=== PATIENT | male | born 1935 | race African-American/Black ===

== ENCOUNTER 2017-04-24 09:43 | Outpatient (CLI) | payer MEDICARE, BC, OTHER ==
--- NOTE | 2017-04-24 11:11 | RAD ---
2 VIEWS CHEST: Date: 04/24/17 COMPARISON: 01/07/13. HISTORY: Chronic cough. FINDINGS: Two views of the chest show a normal sized cardiomediastinal silhouette. There is stable elevation of the left hemidiaphragm. There is no evidence of consolidation, mass, or pleural effusion. Degenerati ve changes are seen in the spine. IMPRESSION: No evidence of acute cardiopulmonary disease. POS: [facility]
== END 2017-04-24 09:44 | disposition home or self-care (01) ==
LOC: RAD-FRANK 09:43
PROVIDERS: ATTEND Nurse Practitioner Family
DX: Z77.090 Contact with and (suspected) exposure to asbestos (principal); Z12.5 Encounter for screening for malignant neoplasm of prostate; C61 Malignant neoplasm of prostate; B36.0 Pityriasis versicolor; E11.622 Type 2 diabetes mellitus with other skin ulcer; E11.65 Type 2 diabetes mellitus with hyperglycemia; E78.5 Hyperlipidemia, unspecified; H25.13 Age-related nuclear cataract, bilateral; K21.9 Gastro-esophageal reflux disease without esophagitis; M16.11 Unilateral primary osteoarthritis, right hip; M17.11 Unilateral primary osteoarthritis, right knee; N40.0 Benign prostatic hyperplasia without lower urinary tract symptoms; I10 Essential (primary) hypertension; Z68.36 Body mass index [BMI] 36.0-36.9, adult; Z96.642 Presence of left artificial hip joint
CPT/HCPCS: 36415; 71020; 80053; 80061; 83036; 84443; 85007; 85027; G0103

== ENCOUNTER 2017-08-15 13:25 | Outpatient (CLI) | payer MEDICARE, BC, OTHER ==
--- NOTE | 2017-08-15 15:05 | RAD ---
TWO VIEW CHEST: Comparison: 04-24-17 Clinical history: Asbestos exposure, URI. FINDINGS: There is re-demonstration of an elevated left hemidiaphragm with adjacent atelectasis. There is mild patchy opacity of the right lateral lung base. Cardiomediastinal silhouette is stable. IMPRESSION: 1. Re-demonstrating of an elevated left hemidiaphragm with adjacent atelectasis. 2. Mild patchy right lateral basilar opacity could relate to volume loss. POS: [facility]
== END 2017-08-15 13:26 | disposition home or self-care (01) ==
LOC: RAD-FRANK 13:25
PROVIDERS: ATTEND Nurse Practitioner Family
DX: J06.9 Acute upper respiratory infection, unspecified (principal); R06.2 Wheezing; J98.11 Atelectasis; J98.4 Other disorders of lung
CPT/HCPCS: 71046

== ENCOUNTER 2017-08-18 08:50 | Outpatient (CLI) | payer MEDICARE, OTHER, BC ==
[2017-08-18 10:31] LABS: Estimated GFR-MDRD - POC Greater than 90
--- NOTE | 2017-08-18 12:44 | CT ---
CT CHEST WITH IV CONTRAST: CT ABDOMEN AND PELVIS WITH IV AND ORAL CONTRAST: HISTORY: Abnormal chest x-ray. Abdomen pain. Prostate cancer. FINDINGS: Mild bibasilar atelectasis is present within the lungs. There are scattered tiny, pleural-based, sub centimeter nodules. The left hemidiaphragm is elevated. No masses are apparent within the mediastin um. Fluid layers within the dependent portion of the mildly distended esophagus. Cysts at the inferior pole, right kidney, measure up to 7 cm. Smaller cysts are associated with the cortex of each kidney. There are prominent degenerative changes of the lumbar spine. The urinary bl adder is unremarkable. Metallic seeds at the prostate bed are consistent with prior brachytherapy. A left hip prosthesis is partially visualized. IMPRESSION: 1. Left hemidiaphragm elevation. This has been chronic on prior radiographs. No pathologic cause i s evident. 2. Gastroesophageal reflux. POS: [facility]
== END 2017-08-18 08:51 | disposition home or self-care (01) ==
LOC: CT 08:50
PROVIDERS: ATTEND Nurse Practitioner Family
DX: J98.11 Atelectasis (principal); J98.4 Other disorders of lung; R91.8 Other nonspecific abnormal finding of lung field; J98.6 Disorders of diaphragm; K21.9 Gastro-esophageal reflux disease without esophagitis
CPT/HCPCS: 71260; 74177; 82565

== ENCOUNTER 2018-05-10 05:09 | Outpatient (CLI) | payer MEDICARE, OTHER ==
[2018-05-10 09:37] LABS: Bilirubin Negative (Negative); Blood, Urine Negative (Negative); Clarity CLEAR (Clear); Glucose, Urine (Dipstick) Negative (Negative); Leukocyte Negative (Negative); Nitrite Negative (Negative); Protein, Urine (Dipstick) Negative (Neg-Trace); Specific Gravity, Urine 1.022 (1.002-1.036); pH, Urine 5.5 (5.0-9.0)
[2018-05-10 09:41] LABS: #Basophils 0.1 thou/uL (0.0-0.2); #Eosinphils 0.2 thou/uL (0.0-0.7); #Lymphocytes 2.3 thou/uL (1.20-3.40); #Monocytes 0.7 thou/uL (0.11-0.59); #Neutrophils 3.5 thou/uL (1.40-6.50); %Basophils 1.4 % (0.0-1.0); %Eosinophils 2.4 % (0.0-10.0); %Lymphocytes 34.4 % (21.0-51.0); %Monocytes 9.7 % (0.0-10.0); %Neutrophils 52.2 % (42.0-75.0); Bacteria/HPF None Seen HPF (None Seen); Hemoglobin 13.9 g/dL (14.0-18.0); Hyaline Casts/LPF 0-3 HYALINE CAST LPF (0-3 Hyaline); Mean Corpuscular HGB CONC 31.3 g/dL (32.0-36.0); Mean Corpuscular Hemoglobin 28.5 pg (27.0-31.0); Mean Corpuscular Volume 91.2 fL (78.0-98.0); Mean Platelet Volume 7.6 fL (7.4-10.4); PTT 37.5 SEC (22.9-36.1); Platelet Count 186 thou/uL (130-400); Prothrombin Time 13.6 SEC (12.0-14.7); RBC Distribution Width 11.7 % (11.5-14.5); Red Blood Cell (RBC) Count 4.87 mill/uL (4.70-6.10); Squamous Epithelial None Seen HPF (0-3); WBC/HPF None Seen HPF (0-3); White Blood Cell (WBC) Count 6.7 thou/uL (4.8-10.8)
[2018-05-10 09:52] LABS: Anion Gap 13 mmol/L (10-20); BUN (Urea Nitrogen) 19 mg/dL (8.4-25.7); Calc. Creatinine Clearance 0 mL/min (70-130); Calcium 9.4 mg/dL (7.8-10.44); Carbon Dioxide 26 mmol/L (23-31); Chloride 103 mmol/L (98-107); Estimated GFR-MDRD Greater than 90; Glucose 139 mg/dL (83-110); Sodium 138 mmol/L (136-145)
== END 2018-05-10 05:10 | disposition home or self-care (01) ==
LOC: LABBT 05:09
PROVIDERS: ATTEND Orthopaedic Surgery
DX: Z01.818 Encounter for other preprocedural examination (principal); M16.11 Unilateral primary osteoarthritis, right hip
CPT/HCPCS: 80048; 81001; 85025; 85610; 85730; 87081; 93005; 93010

== ENCOUNTER 2018-05-10 08:45 | Inpatient (IN) | payer MEDICARE ==
--- NOTE | 2018-05-17 13:25 | HP ---
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 He has also used a cane. His pain is now interfering with day-to-day activities including walking, getting dressed, and sleeping. PAST MEDICAL HISTORY: The patient has had previous left total hip replacement by me 7 years ago with good results. He has had previous low back surgery by Dr. Baker, which was also successful. He recently had a urethral stricture, treated with dilatation by Dr. Price with improvement, and did have a catheter placed for a brief period of time and was on antibiotics, but this has been discontinued. He also has a history of diabetes and previous prostate cancer. He has been seen and cleared for surgery by his primary care provider, Tere Hackett. CURRENT MEDICATIONS: Include naproxen, latanoprost eye drops, Claudine p.r.n., albuterol p.r.n., Flonase p.r.n., simvastatin, Viagra, nystatin, metformin, Flomax, 81 mg aspirin, multivitamins and omeprazole. ALLERGIES: HE IS ALLERGIC TO CODEINE. FAMILY HISTORY, SOCIAL HISTORY, AND REVIEW OF SYSTEMS: Otherwise unremarkable. The patient lives by himself and is independent. PHYSICAL EXAMINATION: GENERAL: Healthy elderly male. HEENT: Unremarkable. NECK: Supple. CHEST: Clear. HEART: Regular rate and rhythm. ABDOMEN: Soft, nontender. RECTAL AND GENITAL EXAMS: Were deferred. EXTREMITIES: Pertinent findings related to the right hip. There is tenderness in the anterior right hip. Right leg is approximately 1 cm short. There is a right antalgic gait. There is decreased range of motion of the right hip and groin pain with internal rotation. Pulses were 1+. NEUROVASCULAR EXAM: Intact. LABORATORY DATA: X-rays of the right hip reveal severe DJD with no joint space remaining. He also has significant DJD of both knees. IMPRESSION: 1. Degenerative joint disease, right hip. 2. Status post left total hip replacement. 3. Diabetes. 4. History of prostate cancer. 5. History of urethral stricture. PLAN: Right total hip replacement. The nature of the surgery, length of recovery, and potential complications such as infection, loss of motion, incomplete relief, neurovascular injury, thromboembolic phenomenon, leg length discrepancy, possible transfusion, and need for revision have been discussed in detail. Job ID: [id number]
[2018-05-21] MEDS ORDERED: Vancomycin HCl 1.5 GM in Sodium Chloride 0.9% 250 ML 300 ML IVPB SCH ×2 (06:15→19:00)
[2018-05-21] MEDS ORDERED: Fentanyl 100 MCG/2 ML VIAL ONE ×5 (06:31→09:49)
[2018-05-21] MEDS ORDERED: Tranexamic Acid 1,000 MG/10 ML VIAL ONE ×2 (06:47→08:50)
[2018-05-21] MEDS ORDERED: Sodium Chloride 0.9% 100 ML ONE (06:47)
[2018-05-21] MEDS ORDERED: CEFAZOLIN 2 GM/50 ML BAG ONE (06:47)
[2018-05-21] MEDS ORDERED: Morphine 10 MG/ML VIAL ONE (08:18)
[2018-05-21] MEDS ORDERED: Tranexamic Acid 1,000 MG in Sodium Chloride 0.9% 100 ML IVPB SCH ×2 (09:00→10:39)
[2018-05-21] MEDS ORDERED: Promethazine HCl 25 MG/ML VIAL IM PRN ×2 (09:05→09:10)
[2018-05-21] MEDS ORDERED: Ondansetron HCl/PF 4 MG/2 ML Vial IVP PRN (09:05)
[2018-05-21] MEDS ORDERED: Promethazine HCl 25 MG/ML VIAL SLOW IVP PRN ×2 (09:05→10:39)
[2018-05-21] MEDS ORDERED: Ketorolac Tromethamine 30 MG/ML VIAL ONE (09:06)
[2018-05-21] MEDS ORDERED: Naloxone HCl 0.4 mg/ml Vial IV PRN (09:10)
[2018-05-21] MEDS ORDERED: diphenhydrAMINE 50 MG/ML VIAL IM/IV PRN (09:10)
[2018-05-21] MEDS ORDERED: HYDROmorphone 10 mg/100 ml CADD IV PRN (09:10)
[2018-05-21] MEDS ORDERED: diphenhydrAMINE 25 MG CAP PO PRN ×2 (09:10→10:39)
[2018-05-21] MEDS ORDERED: Zolpidem Tartrate 5 MG TAB PO PRN ×2 (09:10→10:39)
[2018-05-21] MEDS ORDERED: fentaNYL Citrate/PF 2,000 MCG in Sodium Chloride 0.9% 60 ML IV PRN (09:14)
--- NOTE | 2018-05-21 10:38 | RAD ---
RIGHT HIP 2 VIEWS: INDICATION: Status post right total hip. IMPRESSION: Since the comparison study dated 09/17/2010, the right hip has been replaced. The right hip prosthesis projects in the expected position. No complications are grossly evident. Brachytherapy beads are p resent within the region of the prostate. POS: [facility]
[2018-05-21] MEDS ORDERED: CEFAZOLIN/Water 2 GM/20 ML SYRINGE SLOW IVP SCH (10:39)
[2018-05-21] MEDS ORDERED: PROVENTIL INHALER 6.7 G (200 INHALATIONS) INH PRN (10:39)
[2018-05-21] MEDS ORDERED: Ondansetron PF 4 MG/2 ML Vial IVP PRN (10:39)
[2018-05-21] MEDS ORDERED: Acetaminophen 325 MG TAB PO PRN (10:39)
[2018-05-21] MEDS ORDERED: traMADol HCl 50 MG TAB PO PRN (10:39)
[2018-05-21] MEDS ORDERED: Loratadine 10 MG TAB PO PRN (10:39)
[2018-05-21] MEDS ORDERED: HYDROcodone/Acetaminophen 10/325 mg Tablet PO PRN ×2 (10:39)
[2018-05-21] MEDS ORDERED: Fentanyl 100 MCG/2 ML VIAL SLOW IVP PRN (10:39)
[2018-05-21 11:09] VITALS: BMI 34.9
--- NOTE | 2018-05-21 11:34 | OP ---
DATE OF PROCEDURE: 05/21/2018 CLINICAL CODER: Dr. Matos. ANESTHESIA: General. PREOPERATIVE DIAGNOSIS: Degenerative arthritis, right hip. POSTOPERATIVE DIAGNOSIS: Degenerative arthritis, right hip. PROCEDURE PERFORMED: Right total hip replacement with uncemented M[place] Trident PSL acetabular shell, 56 mm, and uncemented [place] Accolade femoral stem 4.5 with 132 degrees angle trunnion and 36 mm standard neck length metal femoral head. DESCRIPTION OF PROCEDURE: After satisfactory anesthesia was induced in supine position, the patient was placed in a lateral decubitus position. This position held with hip positioning device. Sequential compression devices were placed on the nonoperative leg throughout the procedure. The patient's right hip was then prepped and draped in routine sterile fashion. The hip was approached through a lateral curvilinear incision centered over the greater trochanter, carried down through the subcutaneous tissues and bleeding points were controlled with Bovie cautery. IT-band and gluteal fascia were split in line with the skin incision. A direct lateral approach to the hip prominence was accomplished by dividing the anterior 3rd of the gluteus medius, minimus, Bovie cautery by reflecting this as a single flap anteriorly and medially along with the vastus lateralis. Anterior capsulectomy was performed. Hip dislocated anteriorly. There was marked degenerative arthritis in the hip with large areas of exposed bone. Femoral neck was osteotomized with the oscillating saw using a trial prosthesis as a guide. Acetabulum was exposed and cleaned of all soft tissue and debris and then reamed in sequence with prior reamers down to bleeding subchondral bone to a total of 56 mm. It was felt that a 56 mm PSL outershell could be placed in a press-fit fashion. The femoral component was position. There was good fit and stability of the acetabular shell and the permanent X3 polyethylene liner was then snapped into position and the proximal femur exposed. It was opened with a box osteotome and rasped in sequence to accept the 4.5 Accolade femoral rasp. Trial reduction with 132 degrees angle trunnion and 36 mm femoral head gave appropriate size, fit, and stability. The trial components were removed. The permanent 4.5 Accolade femoral stem was then hammered in position. This gave good fit and stability of the component. The permanent 36-mm standard neck length metal femoral head was then placed on the trunnion and the hip again reduced and found to be stable. The hip was copiously irrigated with pulsatile lavage. The abductors were repaired with interrupted #2 Vicryl. IT-band and gluteal fascia were closed with interrupted #2 Vicryl and a running #2 Quill. Subcutaneous tissues were closed with a running 0 Quill suture and the skin closed with running subcuticular 3-0 Monoderm and SurgiSeal skin adhesive. A sterile dressing was applied and the patient turned in supine position, and a pillow placed between his legs. Sequential compressive device was placed to the operative leg and was awakened, taken to the recovery room in stable condition. There were no apparent intraoperative complications. The estimated blood loss was 300 mL. Job ID: [id number]
[2018-05-21] MEDS ORDERED: Ketorolac Tromethamine 30 MG/ML VIAL IVP SCH (12:00)
[2018-05-21] MEDS: Acetaminophen 1,000 MG in Premix Bag 1 BAG IVPB SCH ×3 (12:58→23:33)
[2018-05-21] MEDS ORDERED: Dextrose 50% Abboject 50 ML SYRINGE SLOW IVP PRN (13:49)
[2018-05-21] MEDS ORDERED: Dextrose 5% in Water 1,000 ML IV PRN (13:49)
[2018-05-21] MEDS ORDERED: Glycopyrrolate 0.2 MG/ML 5 ML SYRINGE ONE (13:51)
[2018-05-21] MEDS ORDERED: Lidocaine 1% PF 5 ML VIAL ONE (13:51)
[2018-05-21] MEDS ORDERED: PHENYLEPHRINE-NS 100 MCG/ML 10 ML SYRINGE ONE (13:51)
[2018-05-21] MEDS ORDERED: PROPOFOL 200 MG/20 ML VIAL ONE (13:51)
[2018-05-21] MEDS ORDERED: Ondansetron PF 4 MG/2 ML Vial ONE (13:51)
[2018-05-21] MEDS ORDERED: ePHEDrine/0.9% NaCl/PF SYRINGE 50 mg/10 ml ONE (13:51)
[2018-05-21] MEDS: Ketorolac Tromethamine 30 MG/ML VIAL IVP SCH ×2 (14:31→21:20)
[2018-05-21] MEDS: CEFAZOLIN 2 GM/50 ML-DEXTROSE 2 GM in Premix Bag 1 BAG IVPB SCH ×2 (14:31→23:31)
[2018-05-21] MEDS: Ondansetron PF 4 MG/2 ML Vial IVP PRN (16:54)
[2018-05-21] MEDS ORDERED: metFORMIN 500 MG TAB PO SCH (17:00)
[2018-05-21] MEDS: Sodium Chloride 0.9% 1,000 ML IV SCH ×2 (18:49→20:08)
[2018-05-21] MEDS: Latanoprost 0.005% Ophth Soln 2.5 ml Bottle EA EYE SCH (20:07)
[2018-05-21] MEDS: Aspirin 81 mg Enteric Coated Tablet PO SCH (20:08)
[2018-05-21] MEDS: Tamsulosin HCl 0.4 MG CAP PO SCH (20:08)
[2018-05-21] MEDS: Atorvastatin Calcium 10 MG TAB PO SCH (20:08)
--- NOTE | 2018-05-21 20:26 | CON ---
DATE OF CONSULTATION: 05/21/2018 CONSULTING PHYSICIAN: Dr. Madison, Orthopedic Surgery. REASON FOR CONSULTATION: Medical management. HISTORY: The patient is an 83-year-old male who just had a right hip replaced by Dr. Madison this morning. He does not have much complaints to offer. Some discomfort in the right hip, but otherwise he is doing quite well. Apparently, he had his left hip replaced seven years ago. HISTORY OF PRESENT ILLNESS: The patient is an [id number] with past medical history: 1. Diabetes mellitus. 2. Prostate cancer. 3. Urethral stricture. 4. Hyperlipidemia. 5. Erectile dysfunction. PAST SURGICAL HISTORY: 1. Left hip replacement. 2. Urethral stricture, status post dilatation. MEDICATIONS: 1. Tylenol 1000 mg q.6 hours p.r.n. 2. Albuterol sulfate two puffs q.6 hours p.r.n. 3. Aspirin 81 mg twice a day. 4. Atorvastatin 10 mg at bedtime. 5. Calcium carbonate 500 mg once a day. 6. Cefazolin 2 g IV piggyback. 7. Fentanyl p.r.n. 2000 mcg. 8. Ferrous gluconate 325 mg twice a day. 9. Fluticasone propionate p.r.n. for nasal congestion. 10. Multivitamin one a day. 11. Ketorolac 15 mg IV push q.8 hours scheduled. 12. Latanoprost which is Xalatan eyedrops one drop to each eye. 13. Claritin 10 mg daily p.r.n. 14. Metformin 1000 mg twice a day. 15. Zofran 4 mg IV push q.6 hours p.r.n. 16. Pantoprazole 40 mg once a day. 17. Senokot-S 2 tablets twice a day. 18. Flomax 0.4 mg q.p.m. 19. Vancomycin 1.5 g. 20. Ambien 5 mg at bedtime p.r.n. ALLERGIES: CODEINE. FAMILY HISTORY: Father at the age of 92 of old age. Mother had liver cancer. She when she was 75. SOCIAL HISTORY: He does not have any current history of cigarette smoking, illicit drug use, or alcohol intake. REVIEW OF SYSTEMS: All 14 systems were reviewed and only positive findings which are mentioned in the HPI. PHYSICAL EXAMINATION: VITAL SIGNS: Blood pressure is 141/72, pulse is 72, respirations 18, temperature is 97.3, and O2 saturation is 96% on room air. HEENT: Head is atraumatic and normocephalic. Eyes are PERRLA. Sclerae are nonicteric. Oral mucosa is moist. NECK: Supple. No lymphadenopathy. Thyroid is not palpable. LUNGS: Clear. HEART: S1 and S2 normal. No S3. No S4. No murmur. ABDOMEN: Soft, nontender. Bowel sounds are present. No organomegaly. EXTREMITIES: Right hip area has a small dressing. There is clubbing, cyanosis, or edema. NEUROLOGICAL EXAMINATION: He is alert and oriented x4. There are no sensory or motor deficits present. Cranial nerves are intact. LABORATORY DATA: Glucose is 123. IMPRESSION: 1. Right hip replacement. 2. Diabetes mellitus. 3. Hyperlipidemia. 4. History of prostate cancer. 5. History of urethral stricture, status post dilatation. 6. History of left total hip replacement. RECOMMENDATION: Use 2000-calories ADA diet. Accu-Cheks a.c. and at bedtime, cover with mild sliding scale. Restart metformin at the time when he goes home. Use pain management with fentanyl. Job ID: [id number]
[2018-05-22] MEDS: Ketorolac Tromethamine 30 MG/ML VIAL IVP SCH ×3 (06:15→21:39)
[2018-05-22] MEDS: Acetaminophen 1,000 MG in Premix Bag 1 BAG IVPB SCH ×2 (06:15→13:12)
[2018-05-22 06:23] LABS: Hemoglobin 10.9 g/dL (14.0-18.0); Mean Corpuscular HGB CONC 32.2 g/dL (32.0-36.0); Mean Corpuscular Hemoglobin 29.3 pg (27.0-31.0); Mean Corpuscular Volume 90.9 fL (78.0-98.0); Mean Platelet Volume 7.4 fL (7.4-10.4); Platelet Count 208 thou/uL (130-400); RBC Distribution Width 11.6 % (11.5-14.5); Red Blood Cell (RBC) Count 3.73 mill/uL (4.70-6.10); White Blood Cell (WBC) Count 10.1 thou/uL (4.8-10.8)
[2018-05-22] MEDS: Sodium Chloride 0.9% 1,000 ML IV SCH ×2 (06:54→18:08)
[2018-05-22] MEDS: Ondansetron PF 4 MG/2 ML Vial IVP PRN (08:39)
[2018-05-22] MEDS: Fluticasone Propionate Nasal Spray 16 gm Bottle NASAL SCH (10:11)
[2018-05-22] MEDS: Senokot S 8.6-50 MG TAB PO SCH ×4 (10:13→20:34)
[2018-05-22] MEDS: Aspirin 81 mg Enteric Coated Tablet PO SCH ×2 (10:13→20:34)
[2018-05-22] MEDS: Multivitamin W/ Minerals 1 TAB PO SCH (10:13)
[2018-05-22] MEDS: Calcium Carbonate 500 MG TAB PO SCH (10:13)
[2018-05-22] MEDS: Ferrous Gluconate 324 MG TAB PO SCH ×2 (10:14→20:31)
[2018-05-22] MEDS: Acetaminophen 500 MG TAB PO SCH (17:54)
[2018-05-22] MEDS: HumaLOG 300 UNITS/3 ML VIAL SC PRN ×2 (18:23→20:36)
[2018-05-22] MEDS: Tamsulosin HCl 0.4 MG CAP PO SCH (20:31)
[2018-05-22] MEDS: Atorvastatin Calcium 10 MG TAB PO SCH (20:32)
[2018-05-22] MEDS: Latanoprost 0.005% Ophth Soln 2.5 ml Bottle EA EYE SCH (20:32)
[2018-05-23] MEDS: Acetaminophen 500 MG TAB PO SCH ×5 (00:31→23:11)
[2018-05-23] MEDS: Sodium Chloride 0.9% 1,000 ML IV SCH ×3 (01:45→20:42)
[2018-05-23] MEDS: Ketorolac Tromethamine 30 MG/ML VIAL IVP SCH ×2 (06:05→14:40)
[2018-05-23 07:36] LABS: Hemoglobin 10.2 g/dL (14.0-18.0); Mean Corpuscular HGB CONC 31.6 g/dL (32.0-36.0); Mean Corpuscular Hemoglobin 28.8 pg (27.0-31.0); Mean Corpuscular Volume 91.1 fL (78.0-98.0); Mean Platelet Volume 7.3 fL (7.4-10.4); Platelet Count 186 thou/uL (130-400); RBC Distribution Width 11.5 % (11.5-14.5); Red Blood Cell (RBC) Count 3.56 mill/uL (4.70-6.10); White Blood Cell (WBC) Count 12.2 thou/uL (4.8-10.8)
[2018-05-23] MEDS: Fluticasone Propionate Nasal Spray 16 gm Bottle NASAL SCH (09:14)
[2018-05-23] MEDS: Multivitamin W/ Minerals 1 TAB PO SCH (09:16)
[2018-05-23] MEDS: Calcium Carbonate 500 MG TAB PO SCH (09:16)
[2018-05-23] MEDS: Aspirin 81 mg Enteric Coated Tablet PO SCH ×2 (09:16→20:38)
[2018-05-23] MEDS: Ferrous Gluconate 324 MG TAB PO SCH ×2 (09:16→20:38)
[2018-05-23] MEDS: Senokot S 8.6-50 MG TAB PO SCH ×2 (09:16→20:38)
[2018-05-23] MEDS ORDERED: HYDROcodone/Acetaminophen 7.5/325 mg Tablet PO PRN ×2 (12:33)
[2018-05-23] MEDS ORDERED: traMADol HCl 50 MG TAB PO PRN ×2 (12:34→12:35)
[2018-05-23] MEDS ORDERED: Fentanyl 100 MCG/2 ML VIAL SLOW IVP PRN (12:35)
[2018-05-23] MEDS: HumaLOG 300 UNITS/3 ML VIAL SC PRN (17:51)
[2018-05-23] MEDS: Tamsulosin HCl 0.4 MG CAP PO SCH (20:38)
[2018-05-23] MEDS: Atorvastatin Calcium 10 MG TAB PO SCH (20:38)
[2018-05-23] MEDS: Latanoprost 0.005% Ophth Soln 2.5 ml Bottle EA EYE SCH (20:39)
[2018-05-24] MEDS: Acetaminophen 500 MG TAB PO SCH ×2 (05:38→13:12)
[2018-05-24] MEDS: Aspirin 81 mg Enteric Coated Tablet PO SCH (08:20)
[2018-05-24] MEDS: Ferrous Gluconate 324 MG TAB PO SCH (08:20)
[2018-05-24] MEDS: Multivitamin W/ Minerals 1 TAB PO SCH (08:20)
[2018-05-24] MEDS: Calcium Carbonate 500 MG TAB PO SCH (08:20)
[2018-05-24] MEDS: Senokot S 8.6-50 MG TAB PO SCH (08:20)
[2018-05-24] MEDS: Fluticasone Propionate Nasal Spray 16 gm Bottle NASAL SCH (08:21)
[2018-05-24] MEDS: Sodium Chloride 0.9% 1,000 ML IV SCH (10:19)
[2018-05-24 12:20] VITALS: BP 126/73; TEMP 97.7
== END 2018-05-24 13:09 | disposition home or self-care (01) | DRG 470 ==
LOC: SJJU 05-21 05:40
PROVIDERS: ADMIT Orthopaedic Surgery; ATTEND Orthopaedic Surgery
PROC: 0SR902A Replacement of Right Hip Joint with Metal on Polyethylene Synthetic Substitute, Uncemented, Open Approach (ICD-10-PCS; principal; 2018-05-21)
DX: M16.11 Unilateral primary osteoarthritis, right hip (principal); Z96.642 Presence of left artificial hip joint; E11.9 Type 2 diabetes mellitus without complications; E78.5 Hyperlipidemia, unspecified; Z79.899 Other long term (current) drug therapy; Z79.82 Long term (current) use of aspirin; Z79.84 Long term (current) use of oral hypoglycemic drugs; Z88.5 Allergy status to narcotic agent; Z85.46 Personal history of malignant neoplasm of prostate
CPT/HCPCS: 36415; 36416; 85027; 86850; 86900; 86901; C1776; J0131; J1200; J1885; J2001; J2270; J2405; J2704; J3010; J3370; J7050

== ENCOUNTER 2018-05-18 10:59 | Outpatient (CLI) | payer MEDICARE | END 2018-05-18 11:00 | disposition home or self-care (01) | LOC: LABBT 10:59 | PROVIDERS: ATTEND Orthopaedic Surgery | DX: Z01.812 Encounter for preprocedural laboratory examination (principal); M16.11 Unilateral primary osteoarthritis, right hip | CPT/HCPCS: 86850; 86900; 86901 ==

== ENCOUNTER 2018-07-23 08:46 | Outpatient (CLI) | payer MEDICARE ==
--- NOTE | 2018-07-23 12:23 | CT ---
CT THORAX WITH IV CONTRAST: INDICATIONS: History of abnormal chest radiograph and prostate cancer. COMPARISON: Prior CT chest, abdomen, and pelvis dated 08/18/2017. FINDINGS: There is stable elevation of the left hemidiaphragm with subsegmental volume loss and/or scarring wit hin the left lung base. No suspicious pulmonary nodule is demonstrated. No pleural effusion or conf luent air space opacity is evident. No enlarged lymph node is present. There is scattered vascular calcification involving the thoracic aorta and coronary arteries. There is an exophytic, hyperdense lesion involving the superior pole of the left kidney, measuring 1.7 cm, that cannot be further david cterized. This is not definitely seen on the comparison renal CT evaluation, dated 01/08/2004. No a cute osseous abnormality is evident. IMPRESSION: 1. No acute cardiopulmonary abnormality. 2. Stable elevation of the left hemidiaphragm with left basilar atelectasis and/or scarring. 3. Hyperdense lesion involving the superior pole left kidney requires further evaluation. Renal ult rasound is recommended for further interrogation. CODE T POS: [facility]
[2018-07-23] MEDS ORDERED: Iopamidol 370 76% 100 ML VIAL ONE (16:28)
== END 2018-07-23 08:47 | disposition home or self-care (01) ==
LOC: CT 08:46
PROVIDERS: ATTEND Nurse Practitioner Family
DX: J98.11 Atelectasis (principal); R91.8 Other nonspecific abnormal finding of lung field; R93.89 Abnormal findings on diagnostic imaging of other specified body structures; N28.9 Disorder of kidney and ureter, unspecified; J98.6 Disorders of diaphragm
CPT/HCPCS: 71260; Q9967

== ENCOUNTER 2018-08-01 15:11 | Outpatient (CLI) | payer MEDICARE ==
--- NOTE | 2018-08-01 16:52 | ULT ---
RENAL ULTRASOUND: 08/01/18 HISTORY: Followup recent CT. COMPARISON: 01/06/04. CORRELATION: CT chest 07/23/18. FINDINGS: Right kidney: Exophytic anechoic focus compatible with a mid pole cyst measuring 6.0 x 4.8 x 7.3 cm. No hydronephrosis. Overall the right kidney measures 12.5 x 6.2 x 6.7 cm. Left kidney: In the mid pole left kidney, there is a 1.7 x 1.4 x 1.3 cm anechoic focus, compatible wi th a slightly exophytic cyst. No hydronephrosis. Left kidney 12.4 x 6.8 x 7.5 cm. The aforementioned cyst is felt to correspond to the CT finding. Unremarkable urinary bladder. IMPRESSION: Bilateral renal cortical cysts. Left renal cyst is felt to correspond to the recent CT finding. POS: [facility]
== END 2018-08-01 15:12 | disposition home or self-care (01) ==
LOC: BICULT 15:11
PROVIDERS: ATTEND Nurse Practitioner Family
DX: N28.9 Disorder of kidney and ureter, unspecified (principal); N28.1 Cyst of kidney, acquired; R93.89 Abnormal findings on diagnostic imaging of other specified body structures
CPT/HCPCS: 76770

== ENCOUNTER 2018-12-13 12:24 | Outpatient (CLI) | payer MEDICARE, BC ==
--- NOTE | 2018-12-13 14:35 | ULT ---
ULTRASOUND NECK SOFT TISSUE LEFT: Date: 12/13/18 HISTORY: Pain. COMPARISON: None. FINDINGS: At the area of palpation is a normal submandibular gland. The right side was done for comparison, whi ch also appears to have normal submandibular gland. There is normal appearance of the left parotid gl and. IMPRESSION: Normal appearance of the salivary glands. CT may be beneficial to evaluate for deeper soft tissue fin dings. POS: [facility]
== END 2018-12-13 12:25 | disposition home or self-care (01) ==
LOC: BICULT 12:24
PROVIDERS: ATTEND Nurse Practitioner Family
DX: R59.0 Localized enlarged lymph nodes (principal)
CPT/HCPCS: 76536

== ENCOUNTER 2018-12-31 16:24 | Emergency (ER) | payer MEDICARE, BC ==
[2018-12-31 17:19] LABS: Bilirubin Negative (Negative); Blood, Urine Negative (Negative); Clarity Clear (Clear); Glucose, Urine (Dipstick) Normal (Negative); Leukocyte Negative Leu/uL (Negative); Nitrite Negative (Negative); Protein, Urine (Dipstick) Negative (Neg-Trace); Urobilinogen Normal mg/dL (Less than 2)
--- NOTE | 2018-12-31 18:03 | CT ---
Head CT without contrast 12/31/2018: HISTORY: Dizziness TECHNIQUE: Axial CT imaging at 5 mm intervals from vertex through skull base without contrast FINDINGS: Imaged paranasal sinuses/mastoid air cells well-aerated. No displaced calvarial fracture. No intracranial hemorrhage, midline shift, or mass effect. Mild cerebral volume loss. IMPRESSION: No acute findings.
[2018-12-31 18:04] LABS: #Basophils 0.1 thou/uL (0.0-0.2); #Eosinphils 0.1 thou/uL (0.0-0.7); #Lymphocytes 2.1 thou/uL (1.20-3.40); #Monocytes 0.6 thou/uL (0.11-0.59); #Neutrophils 2.7 thou/uL (1.40-6.50); %Basophils 1.2 % (0.0-1.0); %Monocytes 10.9 % (0.0-10.0); %Neutrophils 47.9 % (42.0-75.0); Hemoglobin 13.4 g/dL (14.0-18.0); Mean Corpuscular Hemoglobin 30.1 pg (27.0-31.0); Mean Corpuscular Volume 91.4 fL (78.0-98.0); Mean Platelet Volume 7.4 fL (7.4-10.4); Platelet Count 174 thou/uL (130-400); RBC Distribution Width 11.4 % (11.5-14.5); Red Blood Cell (RBC) Count 4.45 mill/uL (4.70-6.10); White Blood Cell (WBC) Count 5.6 thou/uL (4.8-10.8)
[2018-12-31 18:21] LABS: ALT (SGPT) 11 U/L (8-55); AST (SGOT) 13 U/L (5-34); Albumin 3.9 g/dL (3.4-4.8); Alkaline Phosphatase 73 U/L (40-150); Anion Gap 12 mmol/L (10-20); BUN (Urea Nitrogen) 13 mg/dL (8.4-25.7); Calc. Creatinine Clearance 0 mL/min (70-130); Calcium 9.5 mg/dL (7.8-10.44); Carbon Dioxide 25 mmol/L (23-31); Chloride 103 mmol/L (98-107); Estimated GFR-MDRD Greater than 90; Globulin 2.7 g/dL (2.4-3.5); Glucose 109 mg/dL (83-110); Potassium 4.1 mmol/L (3.5-5.1); Protein, Total 6.6 g/dL (5.8-8.1); Sodium 136 mmol/L (136-145)
[2018-12-31] MEDS ORDERED: Meclizine HCl 25 MG TAB ONE (18:48)
== END 2018-12-31 20:34 | disposition home or self-care (01) ==
LOC: ERS 16:24
DX: R42 Dizziness and giddiness (principal); E11.9 Type 2 diabetes mellitus without complications
CPT/HCPCS: 36415; 70450; 80053; 81003; 84484; 85025; 93005; J8597

== ENCOUNTER 2019-11-28 08:02 | Emergency (ER) | payer MEDICARE, BC, OTHER ==
[2019-11-28 08:36] LABS: #Basophils 0.1 thou/uL (0.0-0.2); #Eosinphils 0.1 thou/uL (0.0-0.7); #Lymphocytes 1.3 thou/uL (1.20-3.40); #Monocytes 0.6 thou/uL (0.11-0.59); #Neutrophils 4.6 thou/uL (1.40-6.50); %Eosinophils 2.2 % (0.0-10.0); %Lymphocytes 19.1 % (21.0-51.0); %Monocytes 8.4 % (0.0-10.0); %Neutrophils 69.3 % (42.0-75.0); Hemoglobin 13.1 g/dL (14.0-18.0); Mean Corpuscular HGB CONC 31.6 g/dL (32.0-36.0); Mean Corpuscular Hemoglobin 28.7 pg (27.0-31.0); Mean Corpuscular Volume 90.8 fL (78.0-98.0); Mean Platelet Volume 7.7 fL (7.4-10.4); Platelet Count 222 thou/uL (130-400); RBC Distribution Width 12.8 % (11.5-14.5); Red Blood Cell (RBC) Count 4.56 mill/uL (4.70-6.10); White Blood Cell (WBC) Count 6.6 thou/uL (4.8-10.8)
[2019-11-28 08:52] LABS: ALT (SGPT) 9 U/L (8-55); AST (SGOT) 13 U/L (5-34); Albumin 3.6 g/dL (3.4-4.8); Alkaline Phosphatase 82 U/L (40-110); Anion Gap 13 mmol/L (10-20); BUN (Urea Nitrogen) 9 mg/dL (8.4-25.7); Bilirubin, Total 0.9 mg/dL (0.2-1.2); Calc. Creatinine Clearance 0 mL/min (70-130); Calcium 9.2 mg/dL (7.8-10.44); Carbon Dioxide 26 mmol/L (23-31); Chloride 101 mmol/L (98-107); Estimated GFR-MDRD Greater than 90; Globulin 3.9 g/dL (2.4-3.5); Glucose 147 mg/dL (83-110); Potassium 4.1 mmol/L (3.5-5.1); Protein, Total 7.5 g/dL (5.8-8.1); Sodium 136 mmol/L (136-145)
--- NOTE | 2019-11-28 08:53 | RAD ---
XR Chest 1 View Portable History: Hypertension Comparison: Radiograph 2004. Perfusion is made to a CT from 2019 Findings: Chronic elevation left hemidiaphragm with compressive atelectasis of the left lower lobe an d lingula. Remainder the lungs are clear. Heart size appears normal. Mild tortuosity of the aorta. No acute osseous abnormality. Impression: Chronic findings. No acute intrathoracic abnormality.
[2019-11-28] MEDS ORDERED: Lorazepam 1 MG TAB ONE (08:56)
[2019-11-28 09:20] LABS: Bilirubin Negative (Negative); Blood, Urine Negative (Negative); Clarity Clear (Clear); Glucose, Urine (Dipstick) Normal (Negative); Ketone, Urine Negative (Negative); Leukocyte 75 Leu/uL (Negative); Nitrite Negative (Negative); Protein, Urine (Dipstick) Negative (Neg-Trace); RBC/HPF 0-3 HPF (0-3); Specific Gravity, Urine 1.008 (1.002-1.036); Squamous Epithelial None Seen HPF (0-3); Urobilinogen Normal mg/dL (Less than 2); pH, Urine 7.5 (5.0-9.0)
[2019-11-28 09:35] LABS: Bacteria/HPF 1+ HPF (None Seen)
== END 2019-11-28 11:40 | disposition home or self-care (01) ==
LOC: ERS 08:02
DX: F41.9 Anxiety disorder, unspecified (principal); I10 Essential (primary) hypertension; E11.9 Type 2 diabetes mellitus without complications; Z79.899 Other long term (current) drug therapy; Z79.84 Long term (current) use of oral hypoglycemic drugs
CPT/HCPCS: 36415; 71045; 80053; 81003; 81015; 83880; 84443; 84484; 85025; 87077; 87086; 87186; 93005

== ENCOUNTER 2019-11-30 15:19 | Observation (INO) | payer MEDICARE, BC, OTHER ==
--- NOTE | 2019-11-30 15:59 | RAD ---
EXAM: Single view of the chest HISTORY: Chest pain and hypertension COMPARISON: 11/28/2019 FINDINGS: Single view of the chest shows an enlarged but stable cardiomediastinal silhouette. There is stable elevation of the left hemidiaphragm. There is no evidence of consolidation, mass, or pleural effusion. Degenerative changes are seen in the spine. IMPRESSION: No evidence of acute cardiopulmonary disease
[2019-11-30 16:09] LABS: Bilirubin Negative (Negative); Blood, Urine Negative (Negative); Clarity Clear (Clear); Glucose, Urine (Dipstick) Normal (Negative); Ketone, Urine Negative (Negative); Leukocyte 250 Leu/uL (Negative); Nitrite Negative (Negative); Protein, Urine (Dipstick) Negative (Neg-Trace); RBC/HPF 0-3 HPF (0-3); Specific Gravity, Urine 1.006 (1.002-1.036); Squamous Epithelial None Seen HPF (0-3); Urobilinogen Normal mg/dL (Less than 2)
[2019-11-30 16:12] LABS: Bacteria/HPF 1+ HPF (None Seen)
[2019-11-30 16:13] LABS: #Basophils 0.1 thou/uL (0.0-0.2); #Eosinphils 0.2 thou/uL (0.0-0.7); #Lymphocytes 2.2 thou/uL (1.20-3.40); #Monocytes 0.6 thou/uL (0.11-0.59); #Neutrophils 3.2 thou/uL (1.40-6.50); %Eosinophils 3.2 % (0.0-10.0); %Monocytes 9.8 % (0.0-10.0); Hemoglobin 12.7 g/dL (14.0-18.0); Mean Corpuscular HGB CONC 31.5 g/dL (32.0-36.0); Mean Corpuscular Hemoglobin 28.5 pg (27.0-31.0); Mean Corpuscular Volume 90.4 fL (78.0-98.0); Mean Platelet Volume 7.5 fL (7.4-10.4); Platelet Count 224 thou/uL (130-400); RBC Distribution Width 12.9 % (11.5-14.5); Red Blood Cell (RBC) Count 4.47 mill/uL (4.70-6.10); White Blood Cell (WBC) Count 6.3 thou/uL (4.8-10.8)
[2019-11-30 16:33] LABS: ALT (SGPT) 11 U/L (8-55); AST (SGOT) 14 U/L (5-34); Albumin 3.5 g/dL (3.4-4.8); Alkaline Phosphatase 75 U/L (40-110); Anion Gap 10 mmol/L (10-20); BUN (Urea Nitrogen) 10 mg/dL (8.4-25.7); Bilirubin, Total 0.8 mg/dL (0.2-1.2); Calc. Creatinine Clearance 0 mL/min (70-130); Carbon Dioxide 28 mmol/L (23-31); Chloride 103 mmol/L (98-107); Estimated GFR-MDRD Greater than 90; Globulin 3.6 g/dL (2.4-3.5); Glucose 116 mg/dL (83-110); Magnesium 1.6 mg/dL (1.6-2.6); Potassium 3.9 mmol/L (3.5-5.1); Protein, Total 7.1 g/dL (5.8-8.1); Sodium 137 mmol/L (136-145)
[2019-11-30 16:55] LABS: CKMB 2.3 ng/mL (0-6.6)
[2019-11-30] MEDS ORDERED: Senokot S 8.6-50 MG TAB PO PRN (19:40)
[2019-11-30] MEDS ORDERED: Acetaminophen 325 MG TAB PO PRN (19:40)
[2019-11-30] MEDS ORDERED: Dextrose 5% in Water 1,000 ML IV PRN (20:28)
[2019-11-30] MEDS ORDERED: Dextrose 50% Abboject 50 ML SYRINGE SLOW IVP PRN (20:28)
[2019-11-30 20:46] VITALS: BMI 35.0
[2019-11-30] MEDS: Famotidine 20 MG TAB PO SCH (21:32)
[2019-11-30] MEDS: Apixaban 2.5 MG TAB PO SCH (21:33)
[2019-11-30] MEDS: Temazepam 15 MG CAP PO PRN (21:34)
[2019-11-30 21:55] LABS: Troponin I 0.019 ng/mL (< 0.028)
--- NOTE | 2019-11-30 22:45 | HP ---
CHIEF COMPLAINT: Palpitations. PRIMARY CARE PHYSICIAN: Dr. Hackett. HISTORY OF PRESENT ILLNESS: Mr. Quinn is a very pleasant 84-year-old man complaining of several days of palpitations, which has been intermittent and not associated with chest pain. He denies any shortness of breath or dizziness. Denies any fever, chills, or cough. He was recently seen in the emergency room, found to have a normal sinus rhythm on his EKG, and was discharged. As had his PCP office, he was found to have an irregular heartbeat, presumed to have atrial fibrillation, and was sent to the emergency room today for evaluation. He has past medical history pertinent for diabetes type 2, prostate cancer, and hypertension. Evaluation in the emergency room shows an EKG with atrial fibrillation, rate controlled. Heart rate was 67. He also had a bump in his troponin, which prompted an admission for further evaluation. REVIEW OF SYSTEMS: History of recent days of palpitations. Denies any fever, chills, or upper respiratory. Denies any musculoskeletal pain. Denies any abdominal pain, nausea, vomiting, or diarrhea. All systems are reviewed and are negative, unless mentioned in the HPI. PAST MEDICAL HISTORY: See HPI. PAST SURGICAL HISTORY: Sinus surgery, dental gum surgery, left hip, right hip, and spinal surgery. PSYCHIATRIC HISTORY: Has a history of anxiety. SOCIAL HISTORY: Denies alcohol, drug, or smoking. ALLERGIES: TO CODEINE. CURRENT MEDICATIONS: Which still need to be verified, 1. Amlodipine 2.5 mg p.o. once a day. 2. Sertraline 50 mg p.o. once a day. 3. Metoprolol 25 mg p.o. b.i.d. 4. Atorvastatin 40 mg p.o. once a day. 5. Metformin 500 mg p.o. b.i.d. 6. Flomax 0.4 mg p.o. once a day. 7. Lorazepam 0.5 mg p.o. q.12 hours as needed. PHYSICAL EXAMINATION: VITAL SIGNS: Blood pressure 134/60, pulse is 71, respiratory rate is 19, temp is 97.8, and PO2 sats are 96% on room air. CONSTITUTIONAL: The patient appears nontoxic. He is alert and oriented to person, place, and time. HEENT: Head is atraumatic and normocephalic. Eyes, pupils are equally round and reactive to light. Extraocular muscles are intact. ENT; mouth exam is normal. Mucous membranes are moist. NECK: Normal range of motion. Trachea is midline. RESPIRATORY/CHEST: Breath sounds are clear. Chest expansion is equal. CARDIOVASCULAR: Irregularly irregular. Heart sounds are normal. ABDOMEN: Nontender. Bowel sounds are heard. BACK: Normal range of motion. No tenderness. EXTREMITIES: Upper extremity, motor strength is normal. Sensation is intact. Radial pulses are normal. Lower extremity, motor strength is normal. Pedal pulses are normal. NEURO: The patient is oriented to person, place, and time. Speech is normal. SKIN: Warm and dry. Normal in color that is visualized. PSYCH: Normal insight. Speech is normal. PLAN/ASSESSMENT: 1. New onset atrial fibrillation. We will start Eliquis mg p.o. b.i.d. Order an echocardiogram. Order a TSH and fasting lipids. 2. History of hypertension. We will restart his home medications. 3. History of diabetes type 2. We will add a sliding scale for coverage a.c., bedtime Accu-Cheks. 4. History of hyperlipidemia. We will restart his home medications once verified. 5. Deep vein thrombosis and gastrointestinal prophylaxis ordered. Case discussed with Dr. Workman, who agrees with plan. Job ID: [id number]
[2019-12-01 00:17] LABS: Troponin I 0.022 ng/mL (< 0.028)
[2019-12-01 04:55] LABS: #Basophils 0.1 thou/uL (0.0-0.2); #Eosinphils 0.3 thou/uL (0.0-0.7); #Monocytes 0.8 thou/uL (0.11-0.59); #Neutrophils 3.2 thou/uL (1.40-6.50); %Basophils 0.8 % (0.0-1.0); %Eosinophils 4.4 % (0.0-10.0); %Monocytes 12.3 % (0.0-10.0); %Neutrophils 50.5 % (42.0-75.0); Hemoglobin 12.2 g/dL (14.0-18.0); Mean Corpuscular HGB CONC 30.1 g/dL (32.0-36.0); Mean Corpuscular Hemoglobin 27.7 pg (27.0-31.0); Mean Corpuscular Volume 91.8 fL (78.0-98.0); Mean Platelet Volume 7.5 fL (7.4-10.4); Platelet Count 224 thou/uL (130-400); RBC Distribution Width 12.9 % (11.5-14.5); Red Blood Cell (RBC) Count 4.41 mill/uL (4.70-6.10); White Blood Cell (WBC) Count 6.4 thou/uL (4.8-10.8)
[2019-12-01 05:21] LABS: ALT (SGPT) 10 U/L (8-55); AST (SGOT) 14 U/L (5-34); Albumin 3.3 g/dL (3.4-4.8); Alkaline Phosphatase 69 U/L (40-110); Anion Gap 12 mmol/L (10-20); BUN (Urea Nitrogen) 11 mg/dL (8.4-25.7); Bilirubin, Total 0.7 mg/dL (0.2-1.2); Calc. Creatinine Clearance 127 mL/min (70-130); Calcium 8.9 mg/dL (7.8-10.44); Carbon Dioxide 27 mmol/L (23-31); Chloride 103 mmol/L (98-107); Cholesterol 119 mg/dl (< 200 Desired); Estimated GFR-MDRD Greater than 90; Globulin 3.3 g/dL (2.4-3.5); Glucose 112 mg/dL (83-110); HDL Cholesterol 40 mg/dL (>60 Neg Risk); LDL Cholesterol, Calculated 70 mg/dL; Potassium 3.9 mmol/L (3.5-5.1); Protein, Total 6.6 g/dL (5.8-8.1); Sodium 138 mmol/L (136-145); Triglycerides 46 mg/dL (Less than 150)
[2019-12-01] MEDS: Famotidine 20 MG TAB PO SCH ×2 (08:17→20:37)
[2019-12-01] MEDS: Apixaban 2.5 MG TAB PO SCH (08:17)
[2019-12-01] MEDS ORDERED: Apixaban 2.5 MG TAB PO SCH ×3 (10:00→21:00)
[2019-12-01] MEDS ORDERED: Metoprolol Tartrate 5 MG/5 ML VIAL IVP PRN (12:34)
--- NOTE | 2019-12-01 12:45 | PDOC.HOSPP ---
- Subjective Encounter Date: 12/01/19 Encounter Time: 10:30 Subjective: pt is getting echo. talk to him, he has sxs of palpitations x 1 week at rest and when he wakes up in am. TSH nl. - Objective Vital Signs & Weight: Vital Signs (12 hours) Temp Pulse Resp BP Pulse Ox 12/01/19 11:18 98.0 F 71 13 152/84 H 99 12/01/19 07:25 99.0 F 65 20 122/69 96 12/01/19 03:30 98.1 F 91 20 147/73 H 97 Weight Weight 258 lb 3.2 oz I&O: 11/30/19 12/01/19 12/02/19 06:59 06:59 06:59 Intake Total 360 Output Total 500 300 Balance -140 -300 Result Diagrams: 12/01/19 04:21 12/01/19 04:21 Hospitalist ROS - Medication Medications: Active Medications Generic Name Dose Route Start Last Admin Trade Name Freq PRN Reason Stop Dose Admin Apixaban 2.5 mg 12/01/19 11:15 12/01/19 11:26 Eliquis PO 12/01/19 13:00 2.5 mg NOW TERRI Administration Famotidine 20 mg 11/30/19 21:00 12/01/19 08:17 Pepcid PO 20 mg BID TERRI Administration Temazepam 15 mg 11/30/19 21:04 11/30/19 21:34 Restoril PO 15 mg HSPRN PRN Administration Insomnia - Exam General Appearance: NAD, awake alert Eye: PERRL, anicteric sclera ENT: normocephalic atraumatic Neck: supple Heart: irregular Respiratory: CTAB, normal chest expansion Gastrointestinal: soft, normal bowel sounds Neurological: no focal deficits Hosp A/P - Plan New onset afib pre-syncope -rate controlled and on no Blockers -PRN IV BB for HR > 90 -echo pending -eliquis bid -cardiology c/s placed. HTN - pt is on norvasc - home he has sxs of palpitations x 1 week at rest and when he wakes up in am. TSH nl.
--- NOTE | 2019-12-01 16:24 | CON ---
DATE OF CONSULTATION: HISTORY OF PRESENT ILLNESS: Saeed Quinn is an 84-year-old black male without any previous cardiac problems. He has been noticing over the last week that at times he could feel his heart beating and he would feel somewhat short of breath, but denied any chest discomfort. He presented to the emergency room. EKG initially was unremarkable and he was sent home. He saw his primary physician and was felt that his pulse was somewhat irregular and so he was sent to the emergency room again and another EKG was performed, which the computer incorrectly interpreted his rhythm as atrial fibrillation. He is now admitted. He denies ever having any chest discomfort. He denies any PND, orthopnea, or leg edema. PAST MEDICAL HISTORY: Hypertension, diabetes, and hypercholesterolemia. MEDICATIONS: 1. Amlodipine 2.5 mg daily. 2. Metformin 1000 mg b.i.d. 3. Omeprazole 40 daily. 4. Sertraline 50 daily. 5. Flomax 0.4 mg b.i.d. 6. Atorvastatin 40 mg daily (metoprolol 25 b.i.d. is listed amongst his medicines, on the admission note as well as in the ER record. However, he states he does not take metoprolol and that was stopped several years ago). ALLERGIES: CODEINE. PAST SURGICAL HISTORY: Sinus surgery, gum surgery, bilateral hip surgery, and spine surgery. SOCIAL HISTORY: He does not smoke or drink. REVIEW OF SYSTEMS: Unremarkable except as noted above. PHYSICAL EXAMINATION: VITAL SIGNS: Blood pressure 152/84 and pulse of 71. HEENT: PERRL. NECK: Supple. CHEST: Clear. CARDIAC: S1 and S2 normal without any S3, S4, or murmurs. ABDOMEN: Normal bowel sounds without tenderness or organomegaly. EXTREMITIES: Revealed no clubbing, cyanosis, or edema. NEUROLOGIC: Grossly intact. SKIN: Warm and dry. LABORATORY DATA: EKG does not show atrial fibrillation. He has sinus arrhythmia with PACs. Hemoglobin 12.2, hematocrit 40.5, white count 6400, and platelets 224,000. Sodium 138, potassium 3.9, chloride 103, carbon dioxide 27, BUN 11, and creatinine 0.73. BNP 188.9. Troponin I 0.039, three other normal troponin I's. TSH is normal. Cholesterol 119, triglycerides 46, LDL 70, and HDL 40. IMPRESSION: 1. Palpitations. 2. Sinus arrhythmia with premature atrial contractions, not atrial fibrillation. 3. Shortness of breath. 4. Hypertension. 5. Diabetes. 6. Hypercholesterolemia. 7. Anxiety. PLAN: Mr. Quinn will undergo echocardiography. With his shortness of breath history and multiple cardiac risk factors, he also undergo adenosine Cardiolite testing. The Eliquis may be discontinued. Job ID: [id number] [id number]
[2019-12-01] MEDS ORDERED: Ondansetron PF 4 MG/2 ML Vial IVP PRN (18:52)
[2019-12-01] MEDS: Atorvastatin Calcium 20 MG TAB PO SCH (20:37)
[2019-12-01] MEDS: Temazepam 15 MG CAP PO PRN (21:41)
[2019-12-02] MEDS: Famotidine 20 MG TAB PO SCH ×2 (07:57→20:59)
--- NOTE | 2019-12-02 11:26 | PDOC.HOSPP ---
- Subjective Encounter Date: 12/02/19 Encounter Time: 08:00 Subjective: Patient seen and examined. No new complaints. No overnight events - Objective Vital Signs & Weight: Vital Signs (12 hours) Temp Pulse Resp BP BP Pulse Ox 12/02/19 07:08 97.8 F 89 18 151/87 H 96 12/02/19 03:00 98.2 F 85 16 139/76 96 Weight Weight 249 lb 14.4 oz I&O: 12/01/19 12/02/19 12/03/19 06:59 06:59 06:59 Intake Total 360 1450 Output Total 500 2450 Balance -140 -1000 Result Diagrams: 12/01/19 04:21 12/01/19 04:21 Radiology Reviewed by me: Yes EKG Reviewed by me: Yes Hospitalist ROS - Review of Systems ENT: denies: ear pain, ear discharge, nose pain, nose discharge, nose congestion , mouth pain, mouth swelling, throat pain, throat swelling, other Respiratory: denies: cough, dry, shortness of breath, hemoptysis, SOB with excertion, pleuritic pain, sputum, wheezing, other Cardiovascular: denies: chest pain, palpitations, orthopnea, paroxysmal noc. dyspnea, edema, light headedness, other Gastrointestinal: denies: nausea, vomiting, abdominal pain, diarrhea, constipation, melena, hematochezia, other Genitourinary: denies: dysuria, frequency, incontinence, hematuria, retention, other Musculoskeletal: denies: neck pain, shoulder pain, arm pain, back pain, hand pain, leg pain, foot pain, other - Medication Medications: Active Medications Generic Name Dose Route Start Last Admin Trade Name Freq PRN Reason Stop Dose Admin Atorvastatin Calcium 20 mg 12/01/19 21:00 12/01/19 20:37 Lipitor PO 20 mg HS TERRI Administration Famotidine 20 mg 11/30/19 21:00 12/02/19 07:57 Pepcid PO 20 mg BID TERRI Administration Ondansetron HCl 4 mg 12/01/19 18:52 12/02/19 07:57 Zofran IVP 4 mg Q4H PRN Administration Nausea/Vomiting Temazepam 15 mg 11/30/19 21:04 12/01/19 21:41 Restoril PO 15 mg HSPRN PRN Administration Insomnia - Exam General Appearance: NAD, awake alert Eye: PERRL, anicteric sclera ENT: normocephalic atraumatic, no oropharyngeal lesions Neck: supple, symmetric, no JVD, no thyromegaly Heart: RRR, no murmur, no gallops, no rubs Respiratory: CTAB, no wheezes, no rales, no ronchi Gastrointestinal: soft, non-tender, non-distended, normal bowel sounds Extremities: no cyanosis, no clubbing Skin: normal turgor, no lesions Neurological: no focal deficits Musculoskeletal: normal tone, normal strength Psychiatric: normal affect, normal behavior Hosp A/P - Plan old records reviewed/req Assessment Palpitation and dyspnea rule out acute coronary syndrome Sinus arrhythmia Hypertension Diabetes type 2 Dyslipidemia Depression and anxiety Plan Patient is scheduled for stress test today and if stress test is negative then will consider discharging him home later on today
--- NOTE | 2019-12-02 11:47 | NM ---
EXAM: CARDIAC SPECT HISTORY: Syncope, hypertension and diabetes TECHNIQUE: A myocardial perfusion scan was performed using the single isotope 2 day protocol with ronnie hnetium 99m sestamibi. [30 mCi] was injected intravenously for the rest exam followed by 30 mCi for the stress study. Pharmacologic stress with adenosine was monitored and interpreted by DANIELLE Stanley FINDINGS: A fixed defect in the inferior wall seen may be due to an artifact from adjacent bowel acti vity. The stress images demonstrate mildly decreased tracer localization in the distal anteroseptal wall with reversibility at rest. Gated SPECT LVEF: 55% Wall motion exam: Normal IMPRESSION: Probable mild distal anteroseptal wall ischemia with complete reversibility
[2019-12-02] MEDS: HumaLOG 300 UNITS/3 ML VIAL SC PRN (16:59)
[2019-12-02] MEDS: Atorvastatin Calcium 20 MG TAB PO SCH (20:59)
[2019-12-02] MEDS: Temazepam 15 MG CAP PO PRN (21:04)
[2019-12-03] MEDS ORDERED: Ondansetron ODT 4 MG TAB PO PRN (07:56)
[2019-12-03] MEDS ORDERED: Benzonatate 100 MG CAP PO PRN (07:56)
[2019-12-03] MEDS ORDERED: Loratadine 10 MG TAB PO PRN (07:56)
[2019-12-03] MEDS ORDERED: Calcium Carbonate 500 MG ChewTAB PO PRN (07:56)
[2019-12-03] MEDS ORDERED: Cepastat Lozenges 1 LOZ PO PRN (07:56)
[2019-12-03] MEDS ORDERED: Sodium Chloride 0.65% Nasal 44 ML BOT EA NARE PRN (07:56)
[2019-12-03] MEDS ORDERED: Nitroglycerin 0.4 MG TAB (25 Tab Bottle) SL PRN (07:56)
[2019-12-03] MEDS ORDERED: hydrALAZINE 20 MG/ML VIAL SLOW IVP PRN (07:56)
[2019-12-03] MEDS ORDERED: Diabetic Tussin 200 MG/10 ML UDCUP PO PRN (07:56)
[2019-12-03] MEDS ORDERED: Loperamide HCl 2 MG CAP PO PRN (07:56)
[2019-12-03] MEDS: Famotidine 20 MG TAB PO SCH ×2 (08:27→21:41)
[2019-12-03] MEDS: HumaLOG 300 UNITS/3 ML VIAL SC PRN ×2 (11:17→17:41)
[2019-12-03] MEDS ORDERED: Senokot S 8.6-50 MG TAB PO PRN (11:45)
--- NOTE | 2019-12-03 12:27 | PDOC.HOSPP ---
- Subjective Encounter Date: 12/03/19 Encounter Time: 09:30 Subjective: Patient seen and examined bedside today, patient does not have any complaint, he does not have any chest pain or palpitation he does not feel any short of breath, he is on room air, yesterday patient had abnormal stress test - Objective Vital Signs & Weight: Vital Signs (12 hours) Temp Pulse Resp BP BP Pulse Ox 12/03/19 11:16 97.5 F L 67 17 144/73 H 98 12/03/19 07:09 97.8 F 86 16 142/72 H 97 12/03/19 03:10 98.5 F 84 18 147/84 H 96 Weight Weight 250 lb 1 oz I&O: 12/02/19 12/03/19 12/04/19 06:59 06:59 06:59 Intake Total 1450 1200 Output Total 2450 2120 Balance -1000 -920 Result Diagrams: 12/01/19 04:21 12/01/19 04:21 Additional Labs: Accuchecks 12/03/19 12/03/19 12/02/19 10:32 05:40 11:45 POC Glucose 172 H 136 H 135 H 12/02/19 12/02/19 12/01/19 08:01 05:09 20:12 POC Glucose 156 H 140 H 180 H 12/01/19 12/01/19 12/01/19 17:19 11:23 06:00 POC Glucose 129 H 148 H 110 11/30/19 21:04 POC Glucose 286 H Radiology Reviewed by me: Yes EKG Reviewed by me: Yes Hospitalist ROS - Review of Systems Eyes: denies: pain, vision change, conjunctivae inflammation, eyelid inflammation, redness, other ENT: denies: ear pain, ear discharge, nose pain, nose discharge, nose congestion , mouth pain, mouth swelling, throat pain, throat swelling, other Respiratory: denies: cough, dry, shortness of breath, hemoptysis, SOB with excertion, pleuritic pain, sputum, wheezing, other Cardiovascular: denies: chest pain, palpitations, orthopnea, paroxysmal noc. dyspnea, edema, light headedness, other Gastrointestinal: denies: nausea, vomiting, abdominal pain, diarrhea, constipation, melena, hematochezia, other Genitourinary: denies: dysuria, frequency, incontinence, hematuria, retention, other Musculoskeletal: denies: neck pain, shoulder pain, arm pain, back pain, hand pain, leg pain, foot pain, other - Medication Medications: Active Medications Generic Name Dose Route Start Last Admin Trade Name Freq PRN Reason Stop Dose Admin Atorvastatin Calcium 20 mg 12/01/19 21:00 12/02/19 20:59 Lipitor PO 20 mg HS TERRI Administration Famotidine 20 mg 11/30/19 21:00 12/03/19 08:27 Pepcid PO 20 mg BID TERRI Administration Insulin Human Lispro 0 units 11/30/19 20:28 12/03/19 11:17 Humalog SC 2 unit .MILD SLIDING SCALE PRN Administration Mild Correctional Scale Loratadine 10 mg 12/03/19 07:56 12/03/19 10:07 Claritin PO 10 mg DAILYPRN PRN Administration Allergies Metoprolol Succinate 25 mg 12/02/19 09:00 12/03/19 08:27 Toprol Xl PO 25 mg DAILY TERRI Administration Ondansetron HCl 4 mg 12/01/19 18:52 12/02/19 07:57 Zofran IVP 4 mg Q4H PRN Administration Nausea/Vomiting Temazepam 15 mg 11/30/19 21:04 12/02/19 21:04 Restoril PO 15 mg HSPRN PRN Administration Insomnia - Exam General Appearance: NAD, awake alert Eye: PERRL, anicteric sclera ENT: normocephalic atraumatic, no oropharyngeal lesions Neck: supple, symmetric, no JVD, no thyromegaly Heart: RRR, no murmur, no gallops, no rubs Respiratory: CTAB, no wheezes, no rales, no ronchi Gastrointestinal: soft, non-tender, non-distended, normal bowel sounds Extremities: no cyanosis, no clubbing Skin: normal turgor, no lesions Neurological: no focal deficits Musculoskeletal: normal tone, normal strength Psychiatric: normal affect, normal behavior, A&O x 3 Hosp A/P - Plan old records reviewed/req Assessment Palpitation and dyspnea rule out acute coronary syndrome Abnormal stress test Sinus arrhythmia Hypertension Diabetes type 2 Dyslipidemia Depression and anxiety Plan Cardiology planning to do cardiac catheterization, as patient was given Eliquis on admission cardiac cath will be done tomorrow
[2019-12-03] MEDS: Atorvastatin Calcium 20 MG TAB PO SCH (21:41)
[2019-12-03] MEDS: Temazepam 15 MG CAP PO PRN (21:41)
[2019-12-04] MEDS: Famotidine 20 MG TAB PO SCH (05:34)
[2019-12-04] MEDS ORDERED: Sodium Chloride 0.9% 1,000 ML IV SCH ×2 (06:00→09:04)
[2019-12-04] MEDS ORDERED: Heparin 10,000 UNITS/1 ML VIAL ONE (06:43)
[2019-12-04] MEDS ORDERED: Fentanyl 100 MCG/2 ML VIAL ONE (08:12)
[2019-12-04] MEDS ORDERED: Midazolam HCl 2 mg/2 ml Vial ONE (08:12)
[2019-12-04] MEDS ORDERED: Protamine Sulfate 50 MG/5 ML VIAL ONE (08:44)
[2019-12-04] MEDS ORDERED: Sodium Chloride 0.9% 200 ML IV PRN (09:02)
[2019-12-04] MEDS ORDERED: Nitroglycerin 0.4 MG TAB (25 Tab Bottle) SL PRN (09:02)
[2019-12-04 11:25] VITALS: TEMP 98.4
[2019-12-04] MEDS ORDERED: HYDROcodone/Acetaminophen 10/325 mg Tablet PO PRN (11:37)
--- NOTE | 2019-12-04 12:28 | PRG ---
DATE OF SERVICE: 12/02/2019 Mr. Quinn underwent adenosine Cardiolite testing today. He had a fixed defect in the inferior wall, which was felt to possibly be due to artifact from adjacent bowel activity. There also was evidence for anterior septal ischemia. With this finding and multiple cardiac risk factors, it was recommended for him to have a cardiac catheterization. Risks of this were discussed with the patient including , , myocardial infarction, dye reaction, vascular injury, CVA, transfusion, limb loss, renal loss, etc. Also, risk of intervention with PTCA and stent placement were discussed including , myocardial infarction, emergent CABG, restenosis , stent thrombosis, and vessel perforation, etc. He has never had any gastrointestinal bleeding, stroke, or upcoming surgical procedures, and overall it was recommended that a drug-eluting stent be placed if needed. The cath will be delayed until 12/04/19 aliyah he recieved a dose of Eliquis on 12/01/19. Job ID: [id number] MTDD
[2019-12-04] MEDS: HumaLOG 300 UNITS/3 ML VIAL SC PRN (13:13)
[2019-12-04 15:42] VITALS: BP 125/66
== END 2019-12-04 17:45 | disposition home or self-care (01) ==
LOC: ERS 15:19 → 2NO 17:20
PROVIDERS: ADMIT Internal Medicine; ATTEND Internal Medicine
PROC: 4A023N7 Measurement of Cardiac Sampling and Pressure, Left Heart, Percutaneous Approach (ICD-10-PCS; principal; 2019-11-30)
PROC: B2111ZZ Fluoroscopy of Multiple Coronary Arteries using Low Osmolar Contrast (ICD-10-PCS; 2019-11-30)
DX: I48.91 Unspecified atrial fibrillation (principal); I12.9 Hypertensive chronic kidney disease with stage 1 through stage 4 chronic kidney disease, or unspecified chronic kidney disease; E11.9 Type 2 diabetes mellitus without complications; E78.5 Hyperlipidemia, unspecified; F41.9 Anxiety disorder, unspecified; F32.9 Major depressive disorder, single episode, unspecified; Z79.01 Long term (current) use of anticoagulants; Z79.899 Other long term (current) drug therapy; Z88.5 Allergy status to narcotic agent
CPT/HCPCS: 71045; 78452; 80061; 82553; 82962 ×4; 83735; 83880; 84484 ×2; 85347; 93005; 93017; 93306; 93458; 99285; A9500; 36415; 36416; 80053; 81003; 81015; 84443; 85025; 96374; 99152; 99153; G0378; J0153; J1644; J2250; J2405; J2720; J3010; Q0162

== ENCOUNTER 2020-06-12 08:22 | Day surgery (SDC) | payer MEDICARE ==
[2020-06-11 09:51] VITALS: BMI 32.5
[2020-06-12] MEDS ORDERED: PROPOFOL 20 ML ONE (09:59)
== END 2020-06-12 13:28 | disposition home or self-care (01) ==
LOC: CCL 08:22
PROVIDERS: ATTEND Internal Medicine Cardiovascular Disease
PROC: B246ZZ4 Ultrasonography of Right and Left Heart, Transesophageal (ICD-10-PCS; principal; 2020-06-12)
DX: I48.92 Unspecified atrial flutter (principal); I08.3 Combined rheumatic disorders of mitral, aortic and tricuspid valves; I25.41 Coronary artery aneurysm; I10 Essential (primary) hypertension; E11.9 Type 2 diabetes mellitus without complications; E78.00 Pure hypercholesterolemia, unspecified; K21.9 Gastro-esophageal reflux disease without esophagitis; F41.9 Anxiety disorder, unspecified; Z79.01 Long term (current) use of anticoagulants; Z79.82 Long term (current) use of aspirin; Z79.84 Long term (current) use of oral hypoglycemic drugs; Z79.899 Other long term (current) drug therapy; Z87.891 Personal history of nicotine dependence; Z88.5 Allergy status to narcotic agent
CPT/HCPCS: 92960; 93005; 93010; 93312; J2704

== ENCOUNTER 2020-07-22 14:47 | Observation (INO) | payer MEDICARE ==
[~2020-07-22 14:47] MED LIST: Iopamidol-370 76% 500 ML 1 ML ONE
[2020-07-22 15:35] LABS: #Basophils 0.1 thou/uL (0.0-0.2); #Eosinphils 0.1 thou/uL (0.0-0.7); #Lymphocytes 1.6 thou/uL (1.20-3.40); #Monocytes 0.7 thou/uL (0.11-0.59); #Neutrophils 3.8 thou/uL (1.40-6.50); %Eosinophils 2.3 % (0.0-10.0); %Lymphocytes 25.5 % (21.0-51.0); %Monocytes 11.4 % (0.0-10.0); %Neutrophils 59.9 % (42.0-75.0); Hemoglobin 12.1 g/dL (14.0-18.0); Mean Corpuscular HGB CONC 31.2 g/dL (32.0-36.0); Mean Corpuscular Hemoglobin 29.4 pg (27.0-31.0); Mean Corpuscular Volume 94.2 fL (78.0-98.0); Mean Platelet Volume 7.9 fL (7.4-10.4); Platelet Count 204 thou/uL (130-400); RBC Distribution Width 12.5 % (11.5-14.5); Red Blood Cell (RBC) Count 4.13 mill/uL (4.70-6.10); White Blood Cell (WBC) Count 6.4 thou/uL (4.8-10.8)
[2020-07-22 16:23] LABS: Albumin 3.7 g/dL (3.4-4.8)
[2020-07-22 16:24] LABS: Chloride 101 mmol/L (98-107); Sodium 136 mmol/L (136-145)
[2020-07-22 16:25] LABS: Calcium 8.5 mg/dL (7.8-10.44); Glucose 102 mg/dL (83-110)
[2020-07-22 16:26] LABS: Globulin 4.1 g/dL (2.4-3.5); Protein, Total 7.8 g/dL (5.8-8.1)
[2020-07-22 16:27] LABS: Anion Gap 19 mmol/L (10-20); Bilirubin, Total 1.1 mg/dL (0.2-1.2); Carbon Dioxide 23 mmol/L (23-31)
[2020-07-22 16:28] LABS: Alkaline Phosphatase 68 U/L (40-110)
[2020-07-22 16:29] LABS: Calc. Creatinine Clearance 0 mL/min (70-130); Potassium 6.7 mmol/L (3.5-5.1)
[2020-07-22 16:30] LABS: BUN (Urea Nitrogen) 10 mg/dL (8.4-25.7)
[2020-07-22 16:31] LABS: ALT (SGPT) 19 U/L (8-55); AST (SGOT) 47 U/L (5-34)
[2020-07-22] MEDS ORDERED: Aspirin Chewable 81 MG TAB ONE (16:38)
[2020-07-22 16:42] LABS: INR-International Normal Ratio 1.2; Prothrombin Time 15.7 sec (12.0-14.7)
[2020-07-22] MEDS ORDERED: Calcium Gluc 4.6 MEQ/10 ML (100 MG/ML) ONE ×2 (16:50→17:01)
[2020-07-22] MEDS ORDERED: Insulin Regular 300 UNITS/3 ML VIAL ONE (16:50)
[2020-07-22] MEDS ORDERED: Dextrose 50% Abboject 50 ML SYRINGE ONE (16:50)
[2020-07-22] MEDS ORDERED: Albuterol Sulfate 2.5 mg/3 ml Neb ONE ×2 (17:15→17:39)
[2020-07-22 19:26] LABS: Anion Gap 12 mmol/L (10-20); BUN (Urea Nitrogen) 10 mg/dL (8.4-25.7); Calc. Creatinine Clearance 0 mL/min (70-130); Calcium 9.2 mg/dL (7.8-10.44); Carbon Dioxide 29 mmol/L (23-31); Chloride 102 mmol/L (98-107); Glucose 85 mg/dL (83-110); Potassium 3.8 mmol/L (3.5-5.1); Sodium 139 mmol/L (136-145)
[2020-07-22 20:49] LABS: Troponin I 0.023 ng/mL (< 0.028)
[2020-07-22] MEDS ORDERED: Acetaminophen 325 MG TAB PO PRN ×2 (22:00→23:49)
[2020-07-22] MEDS ORDERED: Ondansetron PF 4 MG/2 ML Vial IVP PRN ×2 (22:00→23:49)
[2020-07-22] MEDS ORDERED: Ondansetron ODT 4 MG TAB SL PRN (22:00)
[2020-07-22 22:36] VITALS: BMI 33.1
[2020-07-22 23:51] LABS: Troponin I 0.021 ng/mL (< 0.028)
[2020-07-23] MEDS ORDERED: hydrALAZINE 20 MG/ML VIAL SLOW IVP PRN (01:23)
[2020-07-23] MEDS ORDERED: Dextrose 50% Abboject 50 ML SYRINGE SLOW IVP PRN (01:43)
[2020-07-23] MEDS ORDERED: HumaLOG 300 UNITS/3 ML VIAL SC PRN (01:43)
[2020-07-23] MEDS ORDERED: Dextrose 5% in Water 1,000 ML IV PRN (01:43)
[2020-07-23 04:42] LABS: #Basophils 0.1 thou/uL (0.0-0.2); #Eosinphils 0.2 thou/uL (0.0-0.7); #Lymphocytes 1.5 thou/uL (1.20-3.40); #Monocytes 0.7 thou/uL (0.11-0.59); #Neutrophils 3.3 thou/uL (1.40-6.50); %Basophils 1.4 % (0.0-1.0); %Eosinophils 3.1 % (0.0-10.0); %Lymphocytes 26.1 % (21.0-51.0); %Monocytes 11.9 % (0.0-10.0); %Neutrophils 57.6 % (42.0-75.0); Hemoglobin 11.6 g/dL (14.0-18.0); Mean Corpuscular HGB CONC 32.6 g/dL (32.0-36.0); Mean Corpuscular Hemoglobin 30.6 pg (27.0-31.0); Mean Corpuscular Volume 93.9 fL (78.0-98.0); Mean Platelet Volume 7.2 fL (7.4-10.4); Platelet Count 194 thou/uL (130-400); RBC Distribution Width 12.2 % (11.5-14.5); Red Blood Cell (RBC) Count 3.81 mill/uL (4.70-6.10); White Blood Cell (WBC) Count 5.7 thou/uL (4.8-10.8)
[2020-07-23 05:09] LABS: Anion Gap 13 mmol/L (10-20); BUN (Urea Nitrogen) 9 mg/dL (8.4-25.7); Calc. Creatinine Clearance 130 mL/min (70-130); Calcium 8.8 mg/dL (7.8-10.44); Carbon Dioxide 27 mmol/L (23-31); Chloride 102 mmol/L (98-107); Glucose 150 mg/dL (83-110); Potassium 3.6 mmol/L (3.5-5.1); Sodium 138 mmol/L (136-145)
[2020-07-23] MEDS ORDERED: Ferrous Sulfate 325 MG TAB PO SCH (08:00)
[2020-07-23] MEDS ORDERED: Apixaban 5 MG TAB PO SCH (09:00)
[2020-07-23] MEDS ORDERED: Multivit, Therapeutic 1 TAB PO SCH (09:00)
[2020-07-23] MEDS ORDERED: Tamsulosin HCl 0.4 MG CAP PO SCH (09:00)
[2020-07-23] MEDS ORDERED: Aspirin 81 mg Enteric Coated Tablet PO SCH (09:00)
[2020-07-23] MEDS ORDERED: Amiodarone 200 MG TAB PO SCH (09:00)
[2020-07-23] MEDS ORDERED: Loratadine 10 MG TAB PO SCH (09:00)
[2020-07-23] MEDS: metFORMIN 500 MG TAB PO SCH ×2 (09:25→16:36)
[2020-07-23 09:59] LABS: SARS-CoV-2 PCR by NAA Not Detected (NotDetected)
[2020-07-23] MEDS ORDERED: Metoprolol Tartrate 25 MG TAB PO SCH (15:45)
[2020-07-23 16:26] VITALS: BP 137/68; TEMP 97.7
[2020-07-23] MEDS ORDERED: Latanoprost 0.005% Ophth Soln 2.5 ml Bottle EA EYE SCH (21:00)
[2020-07-23] MEDS ORDERED: Atorvastatin Calcium 20 MG TAB PO SCH (21:00)
== END 2020-07-23 19:30 | disposition home or self-care (01) ==
LOC: ERS 14:47 → 2SW 21:32
PROVIDERS: ADMIT Internal Medicine; ATTEND Emergency Medicine
DX: R06.02 Shortness of breath (principal); R60.0 Localized edema; I48.92 Unspecified atrial flutter; I47.2 Ventricular tachycardia; I10 Essential (primary) hypertension; E11.9 Type 2 diabetes mellitus without complications; E78.5 Hyperlipidemia, unspecified; E87.5 Hyperkalemia; Z79.01 Long term (current) use of anticoagulants; Z79.82 Long term (current) use of aspirin; Z79.84 Long term (current) use of oral hypoglycemic drugs; Z79.899 Other long term (current) drug therapy; Z88.5 Allergy status to narcotic agent; Z20.822 Contact with and (suspected) exposure to COVID-19
CPT/HCPCS: 71275; 80048 ×2; 80053; 82962 ×2; 83735; 83880; 84484 ×2; 85025 ×2; 85610; 93005; 93306; 93970; 96374; 96375; 99285; G0378 ×3; U0003; U0005; 36415; 36416; 87635; 99214; G0463; J1815; J2001; J7611; Q9967

== ENCOUNTER 2020-11-27 19:30 | Outpatient (CLI) | payer MEDICARE | END 2020-11-27 19:31 | disposition home or self-care (01) | LOC: SLEEPLAB 19:30 | PROVIDERS: ATTEND Nurse Practitioner Family | DX: G47.33 Obstructive sleep apnea (adult) (pediatric) (principal); R53.83 Other fatigue; K21.9 Gastro-esophageal reflux disease without esophagitis; R06.83 Snoring; G47.00 Insomnia, unspecified; I25.10 Atherosclerotic heart disease of native coronary artery without angina pectoris; E11.9 Type 2 diabetes mellitus without complications; I10 Essential (primary) hypertension; E66.9 Obesity, unspecified; Z68.36 Body mass index [BMI] 36.0-36.9, adult | CPT/HCPCS: 95811 ==

== ENCOUNTER 2021-07-08 08:34 | Outpatient (CLI) | payer MEDICARE | END 2021-07-08 08:35 | disposition home or self-care (01) | LOC: BICULT 08:34 | PROVIDERS: ATTEND Nurse Practitioner Family | DX: N40.0 Benign prostatic hyperplasia without lower urinary tract symptoms (principal); R10.9 Unspecified abdominal pain; R19.7 Diarrhea, unspecified; E11.65 Type 2 diabetes mellitus with hyperglycemia; R06.02 Shortness of breath; I10 Essential (primary) hypertension; B36.0 Pityriasis versicolor; E78.5 Hyperlipidemia, unspecified; F41.1 Generalized anxiety disorder; I49.8 Other specified cardiac arrhythmias; M10.9 Gout, unspecified; H40.1132 Primary open-angle glaucoma, bilateral, moderate stage; N28.1 Cyst of kidney, acquired; K21.9 Gastro-esophageal reflux disease without esophagitis; N52.9 Male erectile dysfunction, unspecified; Z85.46 Personal history of malignant neoplasm of prostate | CPT/HCPCS: 76700 ==

== ENCOUNTER 2022-08-07 03:54 | Emergency (ER) | payer MEDICARE ==
[2022-08-07] MEDS ORDERED: Ketorolac Tromethamine 30 MG/ML VIAL ONE (05:19)
[2022-08-07 05:22] LABS: Bacteria/HPF 4+ HPF (None Seen); Bilirubin Negative (Negative); Blood, Urine Negative (Negative); Clarity Clear (Clear); Glucose, Urine (Dipstick) Normal (Negative); Ketone, Urine Negative (Negative); Leukocyte Negative Leu/uL (Negative); Nitrite 1+ (Negative); Protein, Urine (Dipstick) Negative (Neg-Trace); RBC/HPF 0-3 HPF (0-3); Specific Gravity, Urine 1.023 (1.002-1.036); Squamous Epithelial None Seen HPF (0-3); Urobilinogen Normal mg/dL (Less than 2); pH, Urine 5.5 (5.0-9.0)
== END 2022-08-07 05:57 | disposition home or self-care (01) ==
LOC: ERS 03:54
DX: N39.0 Urinary tract infection, site not specified (principal); M25.551 Pain in right hip; E11.9 Type 2 diabetes mellitus without complications; I10 Essential (primary) hypertension
CPT/HCPCS: 81003; 81015; 87077; 87086; 87186; 96372; J1885

== ENCOUNTER 2022-09-05 12:27 | Emergency (ER) | payer MEDICARE ==
[2022-09-05] MEDS ORDERED: Azithromycin 500 MG VIAL ONE (14:06)
[2022-09-05] MEDS ORDERED: Acetaminophen 500 MG TAB ONE ×2 (14:06→14:56)
[2022-09-05] MEDS ORDERED: Ketorolac Tromethamine 30 MG/ML VIAL ONE (14:06)
[2022-09-05] MEDS ORDERED: Dexamethasone 10 MG/ML VIAL ONE (14:06)
[2022-09-05 14:18] LABS: #Basophils 0.1 thou/uL (0.0-0.2); #Eosinphils 0.1 thou/uL (0.0-0.7); #Lymphocytes 1.6 thou/uL (1.20-3.40); #Monocytes 0.4 thou/uL (0.11-0.59); %Eosinophils 1.6 % (0.0-10.0); %Lymphocytes 30.8 % (21.0-51.0); %Neutrophils 58.6 % (42.0-75.0); Hemoglobin 12.3 g/dL (14.0-18.0); Mean Corpuscular HGB CONC 31.3 g/dL (32.0-36.0); Mean Corpuscular Volume 95.8 fl (78.0-98.0); Mean Platelet Volume 7.6 fL (7.4-10.4); Platelet Count 182 10x3/uL (130-400); RBC Distribution Width 11.8 % (11.5-14.5); Red Blood Cell (RBC) Count 4.12 mill/uL (4.70-6.10); White Blood Cell (WBC) Count 5.2 10x3/uL (4.8-10.8)
[2022-09-05 14:26] LABS: ALT (SGPT) 15 U/L (8-55); AST (SGOT) 20 U/L (5-34); Albumin 3.6 g/dL (3.4-4.8); Alkaline Phosphatase 68 U/L (40-110); Anion Gap 14 mmol/L (10-20); BUN (Urea Nitrogen) 11 mg/dL (8.4-25.7); Calc. Creatinine Clearance 0 mL/min (70-130); Calcium 8.9 mg/dL (7.8-10.44); Carbon Dioxide 25 mmol/L (23-31); Chloride 100 mmol/L (98-107); Estimated GFR 87; Globulin 3.4 g/dL (2.4-3.5); Glucose 129 mg/dL (83-110); Potassium 3.7 mmol/L (3.5-5.1); Sodium 135 mmol/L (136-145)
[2022-09-05 14:56] LABS: Bilirubin Negative (Negative); Blood, Urine Negative (Negative); Clarity Turbid (Clear); Glucose, Urine (Dipstick) Normal (Negative); Ketone, Urine Negative (Negative); Leukocyte 25 Leu/uL (Negative); Nitrite Negative (Negative); Protein, Urine (Dipstick) Negative (Neg-Trace); RBC/HPF 0-3 HPF (0-3); Specific Gravity, Urine 1.009 (1.002-1.036); Squamous Epithelial 0-3 HPF (0-3)
[2022-09-05 15:05] LABS: Bacteria/HPF 1+ HPF (None Seen)
[2022-09-05 15:20] LABS: SARS-CoV-2 NAA Rapid Test DETECTED (NotDetected)
== END 2022-09-05 18:49 | disposition home or self-care (01) ==
LOC: ERS 12:27
DX: U07.1 COVID-19 (principal); I10 Essential (primary) hypertension
CPT/HCPCS: 0240U; 71045; 71275; 80053; 83605; 83880; 84484; 85025; 87040; J0456; 36415; 81003; 81015; 96365; 96375; J1100; J1885

== ENCOUNTER 2022-11-13 07:44 | Observation (INO) | payer MEDICARE ==
[2022-11-13] MEDS ORDERED: Morphine 4 MG/ML VIAL ONE (08:12)
[2022-11-13 08:14] LABS: #Basophils 0.1 thou/uL (0.0-0.2); #Eosinphils 0.2 thou/uL (0.0-0.7); #Monocytes 0.6 thou/uL (0.11-0.59); #Neutrophils 4.2 thou/uL (1.40-6.50); %Basophils 0.9 % (0.0-1.0); %Eosinophils 2.3 % (0.0-10.0); %Lymphocytes 23.8 % (21.0-51.0); %Neutrophils 63.8 % (42.0-75.0); Hemoglobin 12.7 g/dL (14.0-18.0); Mean Corpuscular HGB CONC 32.3 g/dL (32.0-36.0); Mean Corpuscular Hemoglobin 30.3 pg (27.0-31.0); Mean Corpuscular Volume 93.8 fl (78.0-98.0); Mean Platelet Volume 10.1 fL (7.4-10.4); Platelet Count 177 10x3/uL (130-400); RBC Distribution Width 12.6 % (11.5-14.5); Red Blood Cell (RBC) Count 4.19 mill/uL (4.70-6.10); White Blood Cell (WBC) Count 6.6 10x3/uL (4.8-10.8)
[2022-11-13 08:38] LABS: ALT (SGPT) 15 U/L (8-55); AST (SGOT) 16 U/L (5-34); Albumin 3.8 g/dL (3.4-4.8); Alkaline Phosphatase 75 U/L (40-110); Anion Gap 16 mmol/L (10-20); BUN (Urea Nitrogen) 22 mg/dL (8.4-25.7); Bilirubin, Total 0.9 mg/dL (0.2-1.2); CK (CPK) 135 U/L (30-200); Calc. Creatinine Clearance 0 mL/min (70-130); Calcium 9.1 mg/dL (7.8-10.44); Carbon Dioxide 24 mmol/L (23-31); Chloride 100 mmol/L (98-107); Estimated GFR 59; Globulin 3.3 g/dL (2.4-3.5); Glucose 143 mg/dL (83-110); Lipase 30 U/L (8-78); Potassium 3.9 mmol/L (3.5-5.1); Protein, Total 7.1 g/dL (5.8-8.1); Sodium 136 mmol/L (136-145)
[2022-11-13 09:00] LABS: CKMB 2.9 ng/mL (0-6.6)
[2022-11-13] MEDS ORDERED: Aspirin Chewable 81 MG TAB ONE (10:08)
[2022-11-13] MEDS ORDERED: Ondansetron PF 4 MG/2 ML Vial IVP PRN (10:15)
[2022-11-13] MEDS ORDERED: Ondansetron ODT 4 MG TAB SL PRN (10:15)
[2022-11-13] MEDS ORDERED: HumaLOG 300 UNITS/3 ML VIAL SC PRN ×2 (11:32)
[2022-11-13] MEDS ORDERED: Glucagon 1 MG/ML KIT IM PRN (11:32)
[2022-11-13] MEDS ORDERED: Dextrose 50% Abboject 50 ML SYRINGE SLOW IVP PRN (11:32)
[2022-11-13] MEDS ORDERED: Dextrose 5% in Water 1,000 ML IV PRN (11:32)
[2022-11-13 12:33] LABS: Troponin I 0.018 ng/mL (< 0.028)
[2022-11-13 12:52] VITALS: BMI 32.2
[2022-11-13] MEDS ORDERED: Iopamidol-370 76% 500 ML MDV (1 ML CHARGE) ONE (13:40)
[2022-11-13 15:25] LABS: Troponin I 0.022 ng/mL (< 0.028)
[2022-11-13] MEDS ORDERED: HYDROcodone/Acetaminophen 5/325 mg Tablet PO SCH (16:30)
[2022-11-14] MEDS: Acetaminophen 325 MG TAB PO PRN ×2 (00:17→17:13)
[2022-11-14 05:44] LABS: #Basophils 0.1 thou/uL (0.0-0.2); #Eosinphils 0.2 thou/uL (0.0-0.7); #Monocytes 0.7 thou/uL (0.11-0.59); #Neutrophils 3.4 thou/uL (1.40-6.50); %Lymphocytes 27.5 % (21.0-51.0); %Monocytes 11.6 % (0.0-10.0); %Neutrophils 56.7 % (42.0-75.0); Hemoglobin 12.5 g/dL (14.0-18.0); Mean Corpuscular HGB CONC 32.1 g/dL (32.0-36.0); Mean Corpuscular Hemoglobin 29.4 pg (27.0-31.0); Mean Corpuscular Volume 91.5 fl (78.0-98.0); Platelet Count 193 10x3/uL (130-400); RBC Distribution Width 12.5 % (11.5-14.5); Red Blood Cell (RBC) Count 4.25 mill/uL (4.70-6.10)
[2022-11-14 06:06] LABS: Anion Gap 14 mmol/L (10-20); BUN (Urea Nitrogen) 14 mg/dL (8.4-25.7); Calc. Creatinine Clearance 106 mL/min (70-130); Calcium 9.3 mg/dL (7.8-10.44); Carbon Dioxide 27 mmol/L (23-31); Chloride 100 mmol/L (98-107); Estimated GFR 88; Glucose 112 mg/dL (83-110); Potassium 3.7 mmol/L (3.5-5.1); Sodium 137 mmol/L (136-145)
[2022-11-14] MEDS ORDERED: Non-Formulary Item 1 EACH (Metformin Hcl [Metformin Hcl] 1,000 MG Tablet) PO SCH (09:00)
[2022-11-14] MEDS ORDERED: Non-Formulary Item 1 EACH (Multivitamin [Multivitamin] 1 EACH Tablet) PO SCH (09:00)
[2022-11-14] MEDS ORDERED: Tamsulosin HCl 0.4 MG CAP PO SCH (09:00)
[2022-11-14] MEDS ORDERED: Apixaban 5 MG TAB PO SCH (09:00)
[2022-11-14] MEDS ORDERED: Regadenoson 0.4 MG/5 ML SYRINGE ONE (10:15)
[2022-11-14] MEDS: Aspirin 81 mg Enteric Coated Tablet PO SCH (10:22)
[2022-11-14] MEDS: Multivit, Therapeutic 1 TAB PO SCH (10:22)
[2022-11-14] MEDS: metFORMIN 500 MG TAB PO SCH ×2 (10:22→20:34)
[2022-11-14] MEDS ORDERED: Atorvastatin Calcium 20 MG TAB PO SCH (21:00)
[2022-11-14] MEDS ORDERED: Atorvastatin Calcium 40 MG TAB PO SCH (21:00)
[2022-11-15] MEDS: Acetaminophen 325 MG TAB PO PRN (00:45)
[2022-11-15] MEDS: Aspirin 81 mg Enteric Coated Tablet PO SCH (08:05)
[2022-11-15] MEDS: metFORMIN 500 MG TAB PO SCH (08:05)
[2022-11-15] MEDS: Multivit, Therapeutic 1 TAB PO SCH (08:05)
[2022-11-15 08:12] VITALS: BP 151/75; TEMP 97.3
== END 2022-11-15 09:40 | disposition home or self-care (01) ==
LOC: ERS 07:44 → 2SW 10:01
PROVIDERS: ADMIT Internal Medicine; ATTEND Hospitalist
DX: R77.8 Other specified abnormalities of plasma proteins (principal); R51.9 Headache, unspecified; I48.0 Paroxysmal atrial fibrillation; I48.92 Unspecified atrial flutter; I10 Essential (primary) hypertension; I25.10 Atherosclerotic heart disease of native coronary artery without angina pectoris; R07.89 Other chest pain; E11.9 Type 2 diabetes mellitus without complications; M54.2 Cervicalgia; C61 Malignant neoplasm of prostate; Z88.5 Allergy status to narcotic agent; Z79.02 Long term (current) use of antithrombotics/antiplatelets; Z79.82 Long term (current) use of aspirin; Z79.899 Other long term (current) drug therapy; Z79.84 Long term (current) use of oral hypoglycemic drugs; Z96.643 Presence of artificial hip joint, bilateral; Z87.891 Personal history of nicotine dependence; Z79.01 Long term (current) use of anticoagulants
CPT/HCPCS: 70450; 70498; 71045; 78452; 80048; 80053; 82550; 82553; 82962 ×3; 83690; 83880; 84484 ×2; 85025 ×2; 85379; 93005; 93017; 94760 ×3; 96374; 99285; A9500; 36415; 36416; G0378; J1815; J2270; J2785; Q9967

== ENCOUNTER 2022-12-08 11:57 | Outpatient (CLI) | payer MEDICARE | END 2022-12-08 11:58 | disposition home or self-care (01) | LOC: RAD 11:57 | PROVIDERS: ATTEND Nurse Practitioner Family | DX: M54.6 Pain in thoracic spine (principal); M54.50 Low back pain, unspecified; M47.814 Spondylosis without myelopathy or radiculopathy, thoracic region; M47.816 Spondylosis without myelopathy or radiculopathy, lumbar region; Z98.890 Other specified postprocedural states | CPT/HCPCS: 72070; 72100 ==

== ENCOUNTER 2023-06-18 17:27 | Inpatient (IN) | payer MEDICARE ==
[~2023-06-18 17:27] MED LIST changes: -Iopamidol-370 76% 500 ML 1 ML ONE; +Iopamidol-370 76% 500 ML MDV (1 ML CHARGE) ONE
[2023-06-18 18:25] LABS: #Eosinphils 0.1 thou/uL (0.0-0.7); #Monocytes 0.6 thou/uL (0.11-0.59); #Neutrophils 3.9 thou/uL (1.40-6.50); %Basophils 0.5 % (0.0-1.0); %Eosinophils 1.3 % (0.0-10.0); %Lymphocytes 22.1 % (21.0-51.0); %Monocytes 10.6 % (0.0-10.0); %Neutrophils 65.3 % (42.0-75.0); Hematocrit 36.2 % (42.0-52.0); Hemoglobin 11.7 g/dL (14.0-18.0); Mean Corpuscular HGB CONC 32.3 g/dL (32.0-36.0); Mean Corpuscular Volume 89.6 fl (78.0-98.0); Mean Platelet Volume 9.8 fL (7.4-10.4); Platelet Count 179 10x3/uL (130-400); Red Blood Cell (RBC) Count 4.04 mill/uL (4.70-6.10)
[2023-06-18 18:29] LABS: Bacteria/HPF 3+ HPF (None Seen); Bilirubin Negative (Negative); Blood, Urine Negative (Negative); CAUTI Indications for Culture Pelvic or flank pain; Clarity Clear (Clear); Glucose, Urine (Dipstick) Normal (Negative); Ketone, Urine Negative (Negative); Leukocyte 75 Leu/uL (Negative); Nitrite 2+ (Negative); Protein, Urine (Dipstick) Negative (Neg-Trace); RBC/HPF 0-3 HPF (0-3); Specific Gravity, Urine 1.014 (1.002-1.036); Squamous Epithelial 0-3 HPF (0-3); Urobilinogen 3 mg/dL (Less than 2)
[2023-06-18 18:31] LABS: Urine Culture Reflex Yes Yes
[2023-06-18 18:47] LABS: ALT (SGPT) 17 U/L (8-55); AST (SGOT) 19 U/L (5-34); Albumin 3.8 g/dL (3.4-4.8); Alkaline Phosphatase 87 U/L (40-110); Anion Gap 14 mmol/L (10-20); BUN (Urea Nitrogen) 20 mg/dL (8.4-25.7); Bilirubin, Total 1.5 mg/dL (0.2-1.2); Calc. Creatinine Clearance 0 mL/min (70-130); Calcium 9.4 mg/dL (7.8-10.44); Carbon Dioxide 29 mmol/L (23-31); Chloride 97 mmol/L (98-107); Estimated GFR 84; Globulin 3.5 g/dL (2.4-3.5); Glucose 136 mg/dL (83-110); Magnesium 1.6 mg/dL (1.6-2.6); Potassium 4.1 mmol/L (3.5-5.1); Protein, Total 7.3 g/dL (5.8-8.1); Sodium 136 mmol/L (136-145)
[2023-06-18 18:57] LABS: Troponin I 0.016 ng/mL (< 0.028)
[2023-06-18 19:15] LABS: SARS-CoV-2 NAA Rapid Test Not Detected (NotDetected)
[2023-06-18] MEDS ORDERED: Sodium Chloride 0.9% 100 ML ONE (19:40)
[2023-06-18] MEDS ORDERED: Meclizine HCl 25 MG TAB ONE (19:40)
[2023-06-18] MEDS ORDERED: cefTRIAXone (ROCEPHIN) 1 GM VIAL ONE (19:40)
[2023-06-18] MEDS ORDERED: Ondansetron PF 4 MG/2 ML Vial ONE (22:04)
[2023-06-19 01:06] VITALS: BMI 37.5
[2023-06-19] MEDS ORDERED: Acetaminophen 650 MG Suppository PR PRN (01:10)
[2023-06-19] MEDS ORDERED: Ondansetron PF 4 MG/2 ML Vial IVP PRN (02:09)
[2023-06-19] MEDS ORDERED: Dextrose 50% Abboject 50 ML SYRINGE SLOW IVP PRN (02:16)
[2023-06-19] MEDS ORDERED: Dextrose 5% in Water 1,000 ML IV PRN (02:16)
[2023-06-19] MEDS ORDERED: Glucagon 1 MG/ML KIT IM PRN (02:16)
[2023-06-19] MEDS ORDERED: HumaLOG 300 UNITS/3 ML VIAL SC PRN ×2 (02:16)
[2023-06-19 04:47] LABS: #Eosinphils 0.1 thou/uL (0.0-0.7); #Monocytes 0.8 thou/uL (0.11-0.59); #Neutrophils 3.3 thou/uL (1.40-6.50); %Basophils 0.5 % (0.0-1.0); %Lymphocytes 26.9 % (21.0-51.0); %Monocytes 13.8 % (0.0-10.0); %Neutrophils 56.8 % (42.0-75.0); Hematocrit 34.2 % (42.0-52.0); Hemoglobin 10.9 g/dL (14.0-18.0); Mean Corpuscular HGB CONC 31.9 g/dL (32.0-36.0); Mean Corpuscular Volume 87.9 fl (78.0-98.0); Mean Platelet Volume 10.5 fL (7.4-10.4); Platelet Count 170 10x3/uL (130-400); RBC Distribution Width 13.2 % (11.5-14.5); Red Blood Cell (RBC) Count 3.89 mill/uL (4.70-6.10); White Blood Cell (WBC) Count 5.9 10x3/uL (4.8-10.8)
[2023-06-19 05:10] LABS: Anion Gap 10 mmol/L (10-20); BUN (Urea Nitrogen) 16 mg/dL (8.4-25.7); Calc. Creatinine Clearance 108 mL/min (70-130); Calcium 9.1 mg/dL (7.8-10.44); Carbon Dioxide 32 mmol/L (23-31); Chloride 100 mmol/L (98-107); Estimated GFR 84; Glucose 151 mg/dL (83-110); Magnesium 1.8 mg/dL (1.6-2.6); Potassium 4.2 mmol/L (3.5-5.1); Sodium 138 mmol/L (136-145)
[2023-06-19] MEDS: Acetaminophen 325 MG TAB PO PRN ×2 (05:34→11:26)
[2023-06-19] MEDS: Meclizine HCl 25 MG TAB PO SCH (05:35)
[2023-06-19] MEDS: Magnesium Sulfate 2 GM in Sodium Chloride 0.9% 100 ML IVPB SCH (08:31)
[2023-06-19] MEDS: Polyethylene Glycol 3350 17 GM Packet PO PRN (09:43)
[2023-06-19] MEDS: Magnesium 2 GM/50 ML(in water) 2 GM in Premix 1 BAG IVPB SCH (09:45)
[2023-06-19] MEDS ORDERED: hydrALAZINE 20 MG/ML VIAL SLOW IVP PRN (15:32)
[2023-06-19] MEDS: metFORMIN 500 MG TAB PO SCH (18:21)
[2023-06-19] MEDS: cefTRIAXone\\ROCEPHIN 1 GM in Sodium Chloride 0.9% 100 ML IVPB SCH (18:22)
[2023-06-19] MEDS: Tamsulosin HCl 0.4 MG CAP PO SCH (20:17)
[2023-06-19] MEDS: Apixaban 5 MG TAB PO SCH (20:17)
[2023-06-19] MEDS: Atorvastatin Calcium 40 MG TAB PO SCH (20:18)
[2023-06-20 05:13] LABS: #Basophils 0.1 thou/uL (0.0-0.2); #Eosinphils 0.2 thou/uL (0.0-0.7); #Monocytes 0.8 thou/uL (0.11-0.59); #Neutrophils 3.9 thou/uL (1.40-6.50); %Basophils 0.7 % (0.0-1.0); %Eosinophils 3.2 % (0.0-10.0); %Lymphocytes 26.9 % (21.0-51.0); %Monocytes 11.5 % (0.0-10.0); %Neutrophils 57.4 % (42.0-75.0); Hematocrit 35.6 % (42.0-52.0); Hemoglobin 11.5 g/dL (14.0-18.0); Mean Corpuscular HGB CONC 32.3 g/dL (32.0-36.0); Mean Corpuscular Hemoglobin 28.8 pg (27.0-31.0); Mean Platelet Volume 10.3 fL (7.4-10.4); Platelet Count 175 10x3/uL (130-400); RBC Distribution Width 12.9 % (11.5-14.5); White Blood Cell (WBC) Count 6.8 10x3/uL (4.8-10.8)
[2023-06-20 05:40] LABS: Anion Gap 10 mmol/L (10-20); BUN (Urea Nitrogen) 13 mg/dL (8.4-25.7); Calc. Creatinine Clearance 116 mL/min (70-130); Calcium 9.3 mg/dL (7.8-10.44); Carbon Dioxide 29 mmol/L (23-31); Chloride 101 mmol/L (98-107); Estimated GFR 86; Glucose 125 mg/dL (83-110); Potassium 4.3 mmol/L (3.5-5.1); Sodium 136 mmol/L (136-145)
[2023-06-20] MEDS: Amiodarone 200 MG TAB PO SCH (09:30)
[2023-06-20] MEDS: Polyvinyl Alcohol 1.4%/Povidone 0.6% Opth Drops EA EYE PRN (21:10)
[2023-06-21] MEDS: Melatonin 3 MG TAB PO PRN (00:26)
[2023-06-21 05:22] LABS: #Eosinphils 0.2 thou/uL (0.0-0.7); #Monocytes 0.9 thou/uL (0.11-0.59); #Neutrophils 3.5 thou/uL (1.40-6.50); %Basophils 0.6 % (0.0-1.0); %Lymphocytes 30.5 % (21.0-51.0); %Monocytes 12.8 % (0.0-10.0); %Neutrophils 52.9 % (42.0-75.0); Hematocrit 38.2 % (42.0-52.0); Mean Corpuscular HGB CONC 31.4 g/dL (32.0-36.0); Mean Corpuscular Hemoglobin 28.3 pg (27.0-31.0); Mean Corpuscular Volume 90.1 fl (78.0-98.0); Mean Platelet Volume 10.4 fL (7.4-10.4); Platelet Count 189 10x3/uL (130-400); Red Blood Cell (RBC) Count 4.24 mill/uL (4.70-6.10); White Blood Cell (WBC) Count 6.6 10x3/uL (4.8-10.8)
[2023-06-21 05:47] LABS: Anion Gap 10 mmol/L (10-20); BUN (Urea Nitrogen) 15 mg/dL (8.4-25.7); Calc. Creatinine Clearance 128 mL/min (70-130); Calcium 9.2 mg/dL (7.8-10.44); Carbon Dioxide 30 mmol/L (23-31); Chloride 102 mmol/L (98-107); Estimated GFR 88; Glucose 125 mg/dL (83-110); Potassium 4.1 mmol/L (3.5-5.1); Sodium 138 mmol/L (136-145)
[2023-06-21] MEDS: Polyethylene Glycol 3350 17 GM Packet PO SCH (08:43)
[2023-06-21] MEDS ORDERED: Meclizine HCl 25 MG TAB PO PRN (09:14)
[2023-06-21] MEDS: Polyvinyl Alcohol 1.4%/Povidone 0.6% Opth Drops EA EYE PRN (11:35)
[2023-06-22 07:19] LABS: #Eosinphils 0.2 thou/uL (0.0-0.7); #Monocytes 0.8 thou/uL (0.11-0.59); #Neutrophils 3.5 thou/uL (1.40-6.50); %Basophils 0.6 % (0.0-1.0); %Eosinophils 2.5 % (0.0-10.0); %Lymphocytes 33.6 % (21.0-51.0); %Monocytes 11.5 % (0.0-10.0); %Neutrophils 51.7 % (42.0-75.0); Hematocrit 38.2 % (42.0-52.0); Hemoglobin 12.5 g/dL (14.0-18.0); Mean Corpuscular HGB CONC 32.7 g/dL (32.0-36.0); Mean Corpuscular Hemoglobin 28.7 pg (27.0-31.0); Mean Corpuscular Volume 87.6 fl (78.0-98.0); Mean Platelet Volume 9.8 fL (7.4-10.4); Platelet Count 198 10x3/uL (130-400); RBC Distribution Width 12.9 % (11.5-14.5); Red Blood Cell (RBC) Count 4.36 mill/uL (4.70-6.10); White Blood Cell (WBC) Count 6.8 10x3/uL (4.8-10.8)
[2023-06-22 07:39] LABS: Anion Gap 10 mmol/L (10-20); BUN (Urea Nitrogen) 16 mg/dL (8.4-25.7); Calc. Creatinine Clearance 114 mL/min (70-130); Calcium 9.3 mg/dL (7.8-10.44); Carbon Dioxide 30 mmol/L (23-31); Chloride 102 mmol/L (98-107); Estimated GFR 85; Glucose 139 mg/dL (83-110); Potassium 4.4 mmol/L (3.5-5.1); Sodium 138 mmol/L (136-145)
[2023-06-22] MEDS: Aspirin 81 mg Enteric Coated Tablet PO SCH (08:32)
[2023-06-22] MEDS ORDERED: Non-Formulary Item 1 EACH (Omeprazole [Omeprazole] 40 Capsule.Dr) PO SCH (09:00)
[2023-06-22] MEDS: cefTRIAXone\\ROCEPHIN 1 GM in Sodium Chloride 0.9% 100 ML IVPB SCH (10:53)
[2023-06-22 12:00] VITALS: BP 121/61; TEMP 97.5
== END 2023-06-22 15:31 | disposition home or self-care (01) | DRG 315 ==
LOC: ERS 17:27 → 2SE 23:26 → OBSVTOIN 06-20 15:08
PROVIDERS: ADMIT Internal Medicine; ATTEND Family Medicine
DX: I95.9 Hypotension, unspecified (principal); I48.92 Unspecified atrial flutter; N39.0 Urinary tract infection, site not specified; E11.9 Type 2 diabetes mellitus without complications; I11.0 Hypertensive heart disease with heart failure; I44.30 Unspecified atrioventricular block; I45.10 Unspecified right bundle-branch block; I50.9 Heart failure, unspecified; N40.0 Benign prostatic hyperplasia without lower urinary tract symptoms; I44.0 Atrioventricular block, first degree; I48.0 Paroxysmal atrial fibrillation; E05.90 Thyrotoxicosis, unspecified without thyrotoxic crisis or storm; K21.9 Gastro-esophageal reflux disease without esophagitis; D64.9 Anemia, unspecified; Z98.890 Other specified postprocedural states; Z11.52 Encounter for screening for COVID-19; Z85.46 Personal history of malignant neoplasm of prostate; Z88.5 Allergy status to narcotic agent; Z79.82 Long term (current) use of aspirin; Z79.84 Long term (current) use of oral hypoglycemic drugs; Z79.899 Other long term (current) drug therapy; Z79.01 Long term (current) use of anticoagulants; Z87.891 Personal history of nicotine dependence
CPT/HCPCS: 36415; 36416; 70496; 70498; 70551; 71045; 80048; 80053; 81001; 83735; 83880; 84439; 84443; 84484; 85025; 87077; 87086; 87186; 93005; 93010; 96365; 96366; 96375; J0696; J2405; J3475; J3490; Q9967

== ENCOUNTER 2023-07-07 15:09 | Outpatient (CLI) | payer MEDICARE | END 2023-07-07 15:10 | disposition home or self-care (01) | LOC: BICULT 15:09 | PROVIDERS: ATTEND Nurse Practitioner Family | DX: R79.89 Other specified abnormal findings of blood chemistry (principal) | CPT/HCPCS: 76536 ==

== ENCOUNTER 2024-02-14 12:48 | Emergency (ER) | payer MEDICARE ==
[2024-02-14 14:05] LABS: Bilirubin Negative (Negative); Blood, Urine 1+ (Negative); CAUTI Indications for Culture Dysuria,urgency,freq; Clarity Turbid (Clear); Glucose, Urine (Dipstick) Normal (Negative); Ketone, Urine Negative (Negative); Leukocyte 500 Leu/uL (Negative); Nitrite Negative (Negative); Protein, Urine (Dipstick) 30 mg/dL (Neg-Trace); Squamous Epithelial 0-3 HPF (0-3); Triple Phosphate Crystal 4+ HPF (None Seen); Urobilinogen Normal mg/dL (Less than 2); WBC/HPF 21-50 HPF (0-3); pH, Urine 8.5 (5.0-9.0)
[2024-02-14 14:08] LABS: Bacteria/HPF 1+ HPF (None Seen)
[2024-02-14 14:09] LABS: Urine Culture Reflex Yes Yes
[2024-02-14 14:50] LABS: #Basophils 0.04 10x3/uL (0.0-0.2); %Basophils 0.6 % (0.0-1.0); %Eosinophils 0.9 % (0.0-10.0); %Lymphocytes 26.9 % (21.0-51.0); %Neutrophils 61.3 % (42.0-75.0); Hematocrit 38.6 % (42.0-52.0); Hemoglobin 12.3 g/dL (14.0-18.0); Mean Corpuscular HGB CONC 31.9 g/dL (32.0-36.0); Mean Corpuscular Hemoglobin 29.6 pg (27.0-31.0); Mean Platelet Volume 9.5 fL (7.4-10.4); Platelet Count 168 10x3/uL (130-400); RBC Distribution Width 12.4 % (11.5-14.5); Red Blood Cell (RBC) Count 4.15 mill/uL (4.70-6.10)
[2024-02-14 15:07] LABS: Anion Gap 9 mmol/L (10-20); BUN (Urea Nitrogen) 14 mg/dL (8.4-25.7); Calc. Creatinine Clearance 0 mL/min (70-130); Calcium 8.9 mg/dL (7.8-10.44); Carbon Dioxide 30 mmol/L (23-31); Chloride 105 mmol/L (98-107); Estimated GFR 84; Glucose 151 mg/dL (83-110); Sodium 140 mmol/L (136-145)
== END 2024-02-14 15:10 | disposition home or self-care (01) ==
LOC: ERS 12:48
DX: N39.0 Urinary tract infection, site not specified (principal); I48.91 Unspecified atrial fibrillation; E11.9 Type 2 diabetes mellitus without complications; I10 Essential (primary) hypertension; Z79.01 Long term (current) use of anticoagulants; Z79.82 Long term (current) use of aspirin; Z79.899 Other long term (current) drug therapy
CPT/HCPCS: 36415; 80053; 81001; 83036; 84153; 85025; 87077; 87086; 87186; 87591; 99283

== ENCOUNTER 2024-04-19 08:26 | Emergency (ER) | payer MEDICARE ==
[2024-04-19] MEDS ORDERED: Budesonide 0.5 MG/2 ML NEB ONE (08:51)
[2024-04-19] MEDS ORDERED: Ipratropium/Albuterol 3 ML NEB ONE (08:52)
[2024-04-19] MEDS ORDERED: Dexamethasone 10 MG/ML VIAL ONE (08:56)
[2024-04-19 09:48] LABS: #Basophils 0.04 10x3/uL (0.0-0.2); %Basophils 0.8 % (0.0-1.0); %Eosinophils 2.5 % (0.0-10.0); %Lymphocytes 32.1 % (21.0-51.0); %Neutrophils 53.4 % (42.0-75.0); Hematocrit 37.5 % (42.0-52.0); Hemoglobin 11.9 g/dL (14.0-18.0); Mean Corpuscular HGB CONC 31.7 g/dL (32.0-36.0); Mean Corpuscular Hemoglobin 29.2 pg (27.0-31.0); Mean Corpuscular Volume 91.9 fL (78.0-98.0); Mean Platelet Volume 10.1 fL (7.4-10.4); Platelet Count 144 10x3/uL (130-400); RBC Distribution Width 12.7 % (11.5-14.5); Red Blood Cell (RBC) Count 4.08 mill/uL (4.70-6.10)
[2024-04-19 09:53] LABS: Bacteria/HPF None Seen HPF (None Seen); Bilirubin Negative (Negative); Blood, Urine Negative (Negative); CAUTI Indications for Culture Acute Hematuria; Clarity Clear (Clear); Glucose, Urine (Dipstick) Normal (Negative); Ketone, Urine Negative (Negative); Leukocyte Negative Leu/uL (Negative); Nitrite Negative (Negative); Protein, Urine (Dipstick) Negative (Neg-Trace); RBC/HPF 0-3 HPF (0-3); Specific Gravity, Urine 1.002 (1.002-1.036); Squamous Epithelial None Seen HPF (0-3); Urobilinogen Normal mg/dL (Less than 2); WBC/HPF 0-3 HPF (0-3)
[2024-04-19 10:02] LABS: Urine Culture Reflex No No
[2024-04-19 10:05] LABS: ALT (SGPT) 61 U/L (8-55); AST (SGOT) 43 U/L (5-34); Albumin 3.4 g/dL (3.4-4.8); Alkaline Phosphatase 100 U/L (40-110); Anion Gap 13 mmol/L (10-20); BUN (Urea Nitrogen) 10 mg/dL (8.4-25.7); Bilirubin, Total 1.8 mg/dL (0.2-1.2); Calc. Creatinine Clearance 0 mL/min (70-130); Carbon Dioxide 28 mmol/L (23-31); Chloride 103 mmol/L (98-107); Estimated GFR 87; Globulin 3.7 g/dL (2.4-3.5); Glucose 154 mg/dL (83-110); Potassium 3.8 mmol/L (3.5-5.1); Protein, Total 7.1 g/dL (5.8-8.1); Sodium 140 mmol/L (136-145)
[2024-04-19 10:08] LABS: Troponin I 0.015 ng/mL (< 0.028)
[2024-04-19] MEDS ORDERED: Furosemide 40 MG (4 mL) VIAL ONE (10:22)
== END 2024-04-19 13:06 | disposition home or self-care (01) ==
LOC: ERS 08:26
DX: R06.02 Shortness of breath (principal); J98.6 Disorders of diaphragm; E11.9 Type 2 diabetes mellitus without complications; I10 Essential (primary) hypertension; I48.91 Unspecified atrial fibrillation; Z79.82 Long term (current) use of aspirin; Z79.01 Long term (current) use of anticoagulants; Z87.891 Personal history of nicotine dependence; Z79.899 Other long term (current) drug therapy
CPT/HCPCS: 71045; 80053; 81001; 83605; 83880; 84484; 85025; 87428; 93005; 94760; 96374; 96375; 99285; J1100; J1940; 36415; J7620; J7626